=== PATIENT | male | born 1970 | race Caucasian/White ===

== ENCOUNTER 2020-01-23 17:30 | Inpatient (IN) ==
[2020-01-23] MEDS ORDERED: CEFEPIME 2,000 MG/20 ML VIAL IV STA (17:47)
[2020-01-23] MEDS ORDERED: SODIUM CHLORIDE 0.9% 1000ML 1,000 ML IV ONE ×2 (17:47→19:16)
--- NOTE | 2020-01-23 17:54 | Emergency Department Note ---
Impression & Plan Acute respiratory distress, Pneumonia, Leukocytosis, Asthma exacerbation ED Provider Note NAME: SUNITA [id number] DOUGIE AGE: 49 SEX: M : 1970 ARRIVES VIA: Ambulance INFORMANT: [Patient][staff] ED PROVIDER(S): [Ilya Suarez MD] CHIEF COMPLAINT: Shortness of breath HISTORY OF PRESENT ILLNESS: The patient is a 49-year-old asthmatic from [facility]. The patient last week had a bout of asthma that seemed to improve with the prednisone. The patient states that he was feeling okay until today when he suddenly got short of breath. He went to the [facility]. The patient was given 2 duo nebs and IV Solu-Medrol. On the way to the hospital, he was given an albuterol neb. Patient is now feeling improved. Of note, the patient was tested for coronavirus today, results pending. There are no active cases of coronavirus at the longterm. Patient felt like he may have had a fever. He has had some chills. There has been no cough or congestion. He has not had chest pain. No sore throat or stuffy nose. No leg swelling. No vomiting or diarrhea. He feels this is an asthma flare. REVIEW OF SYSTEMS: See HPI for pertinent positives and negatives. A total of ten systems were reviewed and were otherwise negative. PMHx/PSHx: See Below SOCIAL HISTORY: See Below. PHYSICAL EXAM: GENERAL: Patient is in mild distress, seems short of breath. HEENT: No acute trauma, normocephalic atraumatic, mucous membranes moist, no nasal congestion, no scleral icterus. NECK: No stridor, no adenopathy, no meningismus, trachea is midline. LUNGS: Increased respiratory rate, no true accessory muscle use. Does seem in some mild respiratory distress. HEART: Equal radial pulses, normal rate. Equal carotid pulses. ABDOMEN: Soft, nontender, bowel sounds positive, no hernias, no peritonitis. EXTREMITIES: No cyanosis or edema, full range of motion of all the joints without pain or difficulty, no signs for acute trauma. NEUROLOGIC: Oriented x 3, no acute motor or sensory deficits, no focal weakness. SKIN: No rash, no jaundice, no diaphoresis. DIFFERENTIAL DIAGNOSIS: Reactive airway disease, pneumonia, pneumothorax, COPD, CHF, coronavirus, bronchitis, infections, cardiac ischemia, pulmonary embolism, musculoskeletal, gastrointestinal, as well as other pathologies. EMERGENCY DEPARTMENT COURSE/PROCEDURES: ECG: Indication was shortness of breath. ECG shows a normal sinus rhythm with a rate of 94. There are some nonspecific ST changes. No ST elevation, no PVCs. Continuous Cardiac Monitoring: An order was placed for continuous cardiac monitoring. The monitor shows a rate of 79 with normal sinus rhythm. Critical Care Note: I have personally spent greater than 48 minutes of critical care time in the direct management of this patient. This includes bedside care, interpretation of diagnostic studies, and testing, discussion with consultants, patient, and family members, and other required patient management activities. This 48 minutes is in excess of all separately billable procedures. MEDICAL DECISION MAKING: There is a significant leukocytosis consistent with infection. No concerning anemia. There was a normal platelet count. No worrisome coagulopathy. Renal panel testing did show a creatinine elevation consistent with dehydration. Lactic acid level was elevated at 3.7, this is consistent with infection. No worrisome liver enzyme elevation. Procalcitonin level was elevated consistent with bacterial infection. ECG shows a sinus rhythm, no acute ischemia. Cardiac enzyme testing x1 is not consistent with acute cardiac injury. TB testing is pending. Chest film showed a left hilar opacity. Chest CT shows evidence for a left upper lung pneumonia. No PE was seen. The patient had received DuoNeb's prior to arrival, he had received IV Solu- Medrol. He was given IV cefepime, IV vancomycin and IV Flagyl for antibiotic coverage. He was given oral Tylenol for his fever. He received 2 L of IV saline for hydration. The patient seems to be doing fairly well. His respiratory rate has decreased. He seems more comfortable. His O2 saturation is adequate. The patient is in need of a hospital stay. He does have a pending coronavirus test from earlier today. His presentation though is more consistent with a bacterial pneumonia, possibly even TB. He is in respiratory isolation. I spoke to the patient and the guards. I spoke with the case therapist. The on- call hospitalist was consulted. Past Med/Surg History Medical History Abdominal tenderness, epigastric Asthma Back problem Right groin mass Surgical History S/P inguinal hernia repair as a child Family History Mother Hypertension Father Asthma Social History Smoking Status: Never smoker Hx Alcohol Use: Yes Preferred Language: Albanian Feels Safe at Home: Yes Allergies Allergies Allergy/AdvReac Type Severity Reaction Status Date / Time No Known Allergies Allergy Verified 01/23/20 19:00 Home Meds Home Medications Medication Instructions Recorded Confirmed cetirizine 10 mg capsule 10 mg PO DAILY 08/13/19 01/23/20 fluticasone 500 mcg-salmeterol 50 1 puffs INH BID 08/13/19 01/23/20 mcg/dose blistr powdr for inhalation ipratropium 0.5 mg-albuterol 3 mg 3 ml INH BID 08/13/19 01/23/20 (2.5 mg base)/3 mL nebulization soln levalbuterol tartrate 45 2 puffs INH QID PRN 08/13/19 01/23/20 mcg/actuation aerosol inhaler montelukast 10 mg tablet 10 mg PO QAM 08/13/19 01/23/20 theophylline 300 mg 300 mg PO QID 08/13/19 01/23/20 capsule,extended release 24 hr acetaminophen 500 mg PO TID 01/23/20 01/23/20 albuterol sulfate [Proventil] 2.5 mg INHALATION Q4H PRN 01/23/20 01/23/20 albuterol sulfate [Proventil] 2.5 mg INHALATION QID 01/23/20 01/23/20 prednisone See Rx Instructions .ROUTE .COMPLEX 01/23/20 01/23/20 Results & Data (ED) Vital Signs Vital Signs - 24 hr 01/23/20 17:36 01/23/20 17:47 01/23/20 17:51 Temperature 38.2 C H Temperature Source Oral Pulse Rate 102 H 102 H Pulse Rate from SpO2 Sensor 103 H Pulse Rhythm Regular Pulse Strength Normal Respiratory Rate 24 28 H 28 H Respiratory Effort / Characteristics Short of Breath Short of Breath Respiratory Depth Shallow Blood Pressure 139/113 H 139/113 H Blood Pressure Mean 117 121 Blood Pressure Position Sitting Pulse Oximetry 99 98 98 Oxygen Delivery Method Room Air Room Air Sepsis Recent Fever Within 48 Hours Yes Sepsis New/Unexplained Change in Mental Status No Sepsis Action Taken by Nursing Physician Notified 01/23/20 17:56 01/23/20 18:00 01/23/20 18:01 Temperature Temperature Source Pulse Rate 96 H 94 H 92 H Pulse Rate from SpO2 Sensor 97 H 96 H 94 H Pulse Rhythm Pulse Strength Respiratory Rate 28 H 27 H 23 Respiratory Effort / Characteristics Respiratory Depth Blood Pressure 114/69 Blood Pressure Mean 88 Blood Pressure Position Pulse Oximetry 100 100 100 Oxygen Delivery Method Sepsis Recent Fever Within 48 Hours Sepsis New/Unexplained Change in Mental Status Sepsis Action Taken by Nursing 01/23/20 18:30 01/23/20 18:31 01/23/20 19:00 Temperature Temperature Source Pulse Rate 96 H 88 86 Pulse Rate from SpO2 Sensor 95 H 91 H 87 Pulse Rhythm Pulse Strength Respiratory Rate 30 H 30 H 23 Respiratory Effort / Characteristics Respiratory Depth Blood Pressure 126/99 142/65 H Blood Pressure Mean 103 72 Blood Pressure Position Pulse Oximetry 99 98 99 Oxygen Delivery Method Sepsis Recent Fever Within 48 Hours Sepsis New/Unexplained Change in Mental Status Sepsis Action Taken by Nursing 01/23/20 19:01 01/23/20 19:30 01/23/20 19:31 Temperature Temperature Source Pulse Rate 86 82 79 Pulse Rate from SpO2 Sensor 87 81 78 Pulse Rhythm Pulse Strength Respiratory Rate 15 15 17 Respiratory Effort / Characteristics Respiratory Depth Blood Pressure 117/66 Blood Pressure Mean 79 Blood Pressure Position Pulse Oximetry 99 98 99 Oxygen Delivery Method Sepsis Recent Fever Within 48 Hours Sepsis New/Unexplained Change in Mental Status Sepsis Action Taken by Residential Medications Current Medication List: was personally reviewed by me Laboratory Data Attestation: I reviewed the patient's lab results. Result diagrams: 01/23/20 18:20 01/23/20 18:20 Lab Results 01/23/20 01/23/20 01/23/20 Range/Units 18:20 18:20 18:20 WBC 21.10 H (4.8-10.8) K/uL RBC 4.46 L (4.7-6.1) M/uL Hgb 13.6 L (14.0-18.0) g/dL Hct 40.2 L (42-52) % MCV 90.1 (80-100) fL MCH 30.5 (25-34) pg MCHC 33.8 (32-36) g/dL RDW Std Deviation 46.8 H (36.4-46.3) fL RDW Coeff of Servando 14.2 (11.5-14.5) % Plt Count 254 (130-400) K/uL MPV 8.8 (7.4-10.4) fL Immature Gran % (Auto) 0.5 % Neut % (Auto) 92.1 % Lymph % (Auto) 1.9 % [place] % (Auto) 5.5 % Eos % (Auto) 0.0 % Baso % (Auto) 0.0 % Neut # (Auto) 19.43 H (1.4-6.5) K/uL Lymph # (Auto) 0.41 L (1.2-3.4) K/uL [place] # (Auto) 1.15 H (0.11-0.59) K/uL Eos # (Auto) 0.00 (0-0.5) K/uL Baso # (Auto) 0.01 (0-0.2) K/uL Immature Gran # (Auto) 0.10 H (0.00-0.02) K/uL PT 12.3 H (9.0-12.0) Seconds INR 1.2 H (0.9-1.1) APTT 27.3 (21.0-31.0) Seconds PTT Ratio 1.0 Sodium 137 (136-145) mmol/L Potassium 4.0 (3.5-5.1) mmol/L Chloride 103 (98-107) mmol/L Carbon Dioxide 25 (21-32) mmol/L Anion Gap 9.0 (3-11) BUN 20 H (7-18) mg/dl Creatinine 1.72 H (0.6-1.4) mg/dl Est Cr Clr Drug Dosing 57.6 ml/min Est GFR ( Amer) 53.3 Est GFR (Non-Af Amer) 46.0 BUN/Creatinine Ratio 11.8 (10-20) Glucose 167 H (70-99) mg/dl Lactate (0.4-2.0) mmol/L Calcium 9.3 (8.5-10.1) mg/dl Magnesium 2.4 (1.8-2.4) mg/dl Total Bilirubin 1.8 H (0.2-1) mg/dl AST 21 (15-37) U/L ALT 39 (12-78) U/L Alkaline Phosphatase 73 (45-117) U/L Troponin I < 0.015 (0-0.045) ng/ml Total Protein 7.4 (6.4-8.2) gm/dl Albumin 3.2 L (3.4-5.0) gm/dl Globulin 4.2 H (2.5-4.0) gm/dl Albumin/Globulin Ratio 0.8 L (0.9-2) Procalcitonin (0-0.5) ng/ml 01/23/20 01/23/20 01/23/20 Range/Units 18:20 18:20 21:08 WBC (4.8-10.8) K/uL RBC (4.7-6.1) M/uL Hgb (14.0-18.0) g/dL Hct (42-52) % MCV (80-100) fL MCH (25-34) pg MCHC (32-36) g/dL RDW Std Deviation (36.4-46.3) fL RDW Coeff of Servando (11.5-14.5) % Plt Count (130-400) K/uL MPV (7.4-10.4) fL Immature Gran % (Auto) % Neut % (Auto) % Lymph % (Auto) % [place] % (Auto) % Eos % (Auto) % Baso % (Auto) % Neut # (Auto) (1.4-6.5) K/uL Lymph # (Auto) (1.2-3.4) K/uL [place] # (Auto) (0.11-0.59) K/uL Eos # (Auto) (0-0.5) K/uL Baso # (Auto) (0-0.2) K/uL Immature Gran # (Auto) (0.00-0.02) K/uL PT (9.0-12.0) Seconds INR (0.9-1.1) APTT (21.0-31.0) Seconds PTT Ratio Sodium (136-145) mmol/L Potassium (3.5-5.1) mmol/L Chloride (98-107) mmol/L Carbon Dioxide (21-32) mmol/L Anion Gap (3-11) BUN (7-18) mg/dl Creatinine (0.6-1.4) mg/dl Est Cr Clr Drug Dosing ml/min Est GFR ( Amer) Est GFR (Non-Af Amer) BUN/Creatinine Ratio (10-20) Glucose (70-99) mg/dl Lactate 3.7 H* 2.4 H* (0.4-2.0) mmol/L Calcium (8.5-10.1) mg/dl Magnesium (1.8-2.4) mg/dl Total Bilirubin (0.2-1) mg/dl AST (15-37) U/L ALT (12-78) U/L Alkaline Phosphatase (45-117) U/L Troponin I (0-0.045) ng/ml Total Protein (6.4-8.2) gm/dl Albumin (3.4-5.0) gm/dl Globulin (2.5-4.0) gm/dl Albumin/Globulin Ratio (0.9-2) Procalcitonin 1.54 H (0-0.5) ng/ml Administered Medications Vancomycin HCl 1,750 mg/ (Sodium Chloride) 535 mls @ 200 mls/hr IV NOW STA Stop: 01/23/20 23:14 Last Admin: 01/23/20 21:11 Dose: 200 mls/hr Documented by: [id number] Discontinued Medications Acetaminophen (Acetaminophen 500 Mg Tab) 1,000 mg PO NOW STA Stop: 01/23/20 18:15 Last Admin: 01/23/20 18:46 Dose: 1,000 mg Documented by: [id number] Cefepime HCl (Maxipime) 2,000 mg in 20 mls @ 5 mls/min IV NOW STA; Protocol Stop: 01/23/20 17:50 Last Admin: 01/23/20 18:46 Dose: 5 mls/min Documented by: [id number] Sodium Chloride (Nss 1000ml) 1,000 mls @ 999 mls/hr IV .Q1H1M ONE Stop: 01/23/20 18:47 Last Infusion: 01/23/20 19:52 Dose: 0 mls/hr Documented by: [id number] Admin: 01/23/20 18:46 Dose: 999 mls/hr Documented by: [id number] Sodium Chloride (Nss 1000ml) 1,000 mls @ 999 mls/hr IV .Q1H1M ONE Stop: 08/12/20 20:16 Last Infusion: 01/23/20 20:54 Dose: 0 mls/hr Documented by: [id number] Admin: 01/23/20 19:53 Dose: 999 mls/hr Documented by: [id number] Metronidazole (Flagyl) 500 mg in 100 mls @ 100 mls/hr IV NOW STA Stop: 01/23/20 21:37 Last Infusion: 01/23/20 22:13 Dose: 0 mls/hr Documented by: [id number] Admin: 01/23/20 21:11 Dose: 100 mls/hr Documented by: [id number] Ioversol (Optiray 320 125ml) 118 ml IV ONCE ONE Stop: 01/23/20 20:02 Last Admin: 01/23/20 20:01 Dose: 118 ml Documented by: [id number] Methylprednisolone (Methylprednisolone 125 Mg/2 Ml Vial) 125 mg IV NOW STA Stop: 01/23/20 21:27 Last Admin: 01/23/20 21:37 Dose: Not Given Documented by: [id number] Imaging Data Radiologist's Impression: XR chest 1V portable HISTORY: 49 years-old Male SEPSIS acute sepsis COMPARISON: None TECHNIQUE: Portable AP view of the chest FINDINGS: 5.1 cm left suprahilar opacity. The cardiac silhouette appears normal. No pneumothorax, pleural effusion or overt pulmonary edema. No airspace consolidation typical for pneumonia. Bones appear grossly intact. IMPRESSION: Indeterminate 5.1 cm left suprahilar opacity. Correlation with CT of the chest recommended to exclude adenopathy versus mass. CT angio chest PE protocol CT DOSE: 384.53 mGy.cm HISTORY: 49 years-old Male with PE. Acute shortness of breath with possible Covid TECHNIQUE: Multiple CTA images of the chest were obtained after the intravenous administration of 118 ml Optiray 320. Coronal and sagittal MIPS were obtained from the axial data set and were submitted for review. All measurements were obtained according to NASCET criteria. A dose lowering technique was utilized adhering to the principles of ALARA. COMPARISON: Chest radiograph of same day FINDINGS: CTA: Heart is normal in size. Trace pericardial effusion. No thoracic aortic aneurysm or dissection. Patency of the imaged great vessels. The pulmonary arterial tree is opacified to the level of the proximal subsegmental branches and demon strates no filling defects to suggest thromboembolic disease. CT CHEST: Unremarkable thyroid. Mildly enlarged AP window and paratracheal lymph nodes measure up to 11 mm in short axis. Additionally there are prominent hilar and subcarinal lymph nodes. There is no pneumothorax or pleural effusion. Irregular patchy consolidative opacities of the upper lobes. There is a left suprahilar upper lobe consolidative opacity with peripheral groundglass densities overall measuring approximately 5.0 x 3.0 x 5.7 cm. This demonstrates central air bronchograms with equivocal areas of cavitation on image 194 series 4. Fissural lymph nodes of the left midlung. Secretions are noted at the level of the greetl. The central airways are patent. Probable cyst of the superior pole left kidney, 2.8 cm. No acute process of the imaged upper abdomen. Probable cyst of the left hepatic lobe, 6 mm. Mild gynecomastia. Bones appear intact. IMPRESSION: 1. Irregular airspace opacities of the upper lobes with a 5.7 cm focal mixed consolidative and groundglass left upper lobe suprahilar opacity with central air bronchograms and equivocal central cavitation. Findings are suggestive of multifocal pneumonia with possible developing necrotic pneumonia. A short-term follow-up chest CT in one month after treatment course is recommended to document resolution. 2. Mediastinal and hilar adenopathy, likely reactive. 3. No acute aortic pathology or evidence of pulmonary thromboembolic disease. 4. No pleural effusion. Blood Pressure Blood Pressure Findings: Elevated blood pressure Blood Pressure Disposition: further management by hospitalist Discharge Plan Visit Data Chief Complaint: Shortness of Breath/Dyspnea Stated Complaint: SOB ED Provider: Ilya Suarez Discharge Problem: Acute respiratory distress, Pneumonia, Leukocytosis, Asthma exacerbation Patient Disposition: Admitted As Inpatient Condition: Fair Discharge Instructions Interventions: ED Discharge Assessment Last Done: 01/23/20 22:51 Discharge Problem: Pneumonia Qualifiers: Pneumonia type: due to unspecified organism Laterality: left Lung location: upper lobe of lung Qualified Code(s): J18.9 - Pneumonia, unspecified organism Leukocytosis Qualifiers: Leukocytosis type: unspecified Qualified Code(s): D72.829 - Elevated white blood cell count, unspecified Asthma exacerbation Qualifiers: Asthma severity: severe Asthma persistence: persistent Qualified Code(s): J45.51 - Severe persistent asthma with (acute) exacerbation
[2020-01-23] MEDS ORDERED: ACETAMINOPHEN 500 MG TAB PO STA (18:14)
[2020-01-23 18:37] LABS: Basophils # (auto) 0.01 K/uL (0-0.2); Hematocrit (blood only) 40.2 % (42-52); Hemoglobin 13.6 g/dL (14.0-18.0); Immature Granulocytes % (auto) 0.5 %; Lymphocytes # (auto) 0.41 K/uL (1.2-3.4); Lymphocytes % (auto) 1.9 %; Mean Corpuscular Hemoglobin 30.5 pg (25-34); Mean Corpuscular Hgb Conc 33.8 g/dL (32-36); Mean Corpuscular Volume 90.1 fL (80-100); Mean Platelet Volume 8.8 fL (7.4-10.4); Monocytes # (auto) 1.15 K/uL (0.11-0.59); Monocytes % (auto) 5.5 %; Neutrophils # (auto) 19.43 K/uL (1.4-6.5); Neutrophils % (auto) 92.1 %; Platelet Count 254 K/uL (130-400); RDW Coefficient of Variation 14.2 % (11.5-14.5); RDW Standard Deviation 46.8 fL (36.4-46.3); Red Blood Count 4.46 M/uL (4.7-6.1)
[2020-01-23 18:54] LABS: Alanine Aminotransferase 39 U/L (12-78); Albumin Level 3.2 gm/dl (3.4-5.0); Aspartate Aminotransferase 21 U/L (15-37); BUN Creatinine Ratio 11.8 (10-20); Blood Urea Nitrogen 20 mg/dl (7-18); Calcium 9.3 mg/dl (8.5-10.1); Carbon Dioxide 25 mmol/L (21-32); Chloride 103 mmol/L (98-107); Creatinine Clr Calc Pharmacy 57.6 ml/min; Est GFR (African American) 53.3; Glucose 167 mg/dl (70-99); Magnesium 2.4 mg/dl (1.8-2.4); Sodium 137 mmol/L (136-145)
[2020-01-23 18:55] LABS: INR 1.2 (0.9-1.1); Partial Thromboplastin Time 27.3 Seconds (21.0-31.0); Prothrombin Time 12.3 Seconds (9.0-12.0)
[2020-01-23 18:59] LABS: Albumin Globulin Ratio 0.8 (0.9-2); Alkaline Phosphatase 73 U/L (45-117); Bilirubin,Total 1.8 mg/dl (0.2-1); Globulin 4.2 gm/dl (2.5-4.0); Total Protein 7.4 gm/dl (6.4-8.2); Troponin I < 0.015 ng/ml (0-0.045)
--- NOTE | 2020-01-23 19:05 | XRay Report ---
XR chest 1V portable HISTORY: 49 years-old Male SEPSIS acute sepsis COMPARISON: None TECHNIQUE: Portable AP view of the chest FINDINGS: 5.1 cm left suprahilar opacity. The cardiac silhouette appears normal. No pneumothorax, pleural effus ion or overt pulmonary edema. No airspace consolidation typical for pneumonia. Bones appear grossly i ntact. IMPRESSION: Indeterminate 5.1 cm left suprahilar opacity. Correlation with CT of the chest recommende d to exclude adenopathy versus mass. ACT 112: Negative or not required by law. The above report was generated using voice recognition software. It may contain grammatical, syntax o r spelling errors. Electronically signed by: Uziel Romero M.D. 01/23/2020 7:03 PM
[2020-01-23] MEDS ORDERED: OPTIRAY 320 125ml IV ONE (20:01)
--- NOTE | 2020-01-23 20:19 | CT Scan Report ---
CT angio chest PE protocol CT DOSE: 384.53 mGy.cm HISTORY: 49 years-old Male with PE. Acute shortness of breath with possible Covid TECHNIQUE: Multiple CTA images of the chest were obtained after the intravenous administration of 118 ml Optiray 320. Coronal and sagittal MIPS were obtained from the axial data set and were submitted for review. All measurements were obtained according to NASCET criteria. A dose lowering technique w as utilized adhering to the principles of ALARA. COMPARISON: Chest radiograph of same day FINDINGS: CTA: Heart is normal in size. Trace pericardial effusion. No thoracic aortic aneurysm or dissection. Paten cy of the imaged great vessels. The pulmonary arterial tree is opacified to the level of the proximal subsegmental branches and demonstrates no filling defects to suggest thromboembolic disease. CT CHEST: Unremarkable thyroid. Mildly enlarged AP window and paratracheal lymph nodes measure up to 11 mm in s hort axis. Additionally there are prominent hilar and subcarinal lymph nodes. There is no pneumothorax or pleural effusion. Irregular patchy consolidative opacities of the upper l obes. There is a left suprahilar upper lobe consolidative opacity with peripheral groundglass densiti es overall measuring approximately 5.0 x 3.0 x 5.7 cm. This demonstrates central air bronchograms wit h equivocal areas of cavitation on image 194 series 4. Fissural lymph nodes of the left midlung. Secr etions are noted at the level of the gretel. The central airways are patent. Probable cyst of the superior pole left kidney, 2.8 cm. No acute process of the imaged upper abdomen. Probable cyst of the left hepatic lobe, 6 mm. Mild gynecomastia. Bones appear intact. IMPRESSION: 1. Irregular airspace opacities of the upper lobes with a 5.7 cm focal mixed consolidative and ground glass left upper lobe suprahilar opacity with central air bronchograms and equivocal central cavitati on. Findings are suggestive of multifocal pneumonia with possible developing necrotic pneumonia. A sh ort-term follow-up chest CT in one month after treatment course is recommended to document resolution . 2. Mediastinal and hilar adenopathy, likely reactive. 3. No acute aortic pathology or evidence of pulmonary thromboembolic disease. 4. No pleural effusion. ACT 112: Negative or not required by law. The above report was generated using voice recognition software. It may contain grammatical, syntax o r spelling errors. Electronically signed by: Uziel Romero M.D. 01/23/2020 8:18 PM
[2020-01-23] MEDS ORDERED: VANCOMYCIN HCL 1,750 MG in SODIUM CHLORIDE 0.9% 500 ML IV STA (20:34)
[2020-01-23] MEDS ORDERED: metroNIDAZOLE 500 MG/100 ML BAG IV STA (20:38)
[2020-01-23] MEDS ORDERED: VANCOMYCIN CONSULT ACTIVE PRN ×2 (20:38→22:48)
[2020-01-23] MEDS ORDERED: methylPREDNISolone 125 MG/2 ML VIAL IV STA (21:26)
--- NOTE | 2020-01-23 21:39 | History & Physical Report ---
Date of Service January 23, 2020 Assessment & Plan (1) Acute respiratory failure with hypoxia: Acute respiratory failure with hypoxia/5.7 cm LAUREN consolidation with central cavitation/mediastinal and hilar lymphadenopathy/bilateral upper airway irregular opacities- Admit to monitored bed NPO except for essential medications Respiratory isolation QuantiFERON TB Gold testing ordered Vancomycin IV per pharmacokinetic monitoring Zosyn 4.5 g IV every 8 hours Duonebs every 4 hours while awake and every 2 hours when necessary. Methylprednisolone 40 mg IV every 8 hours Guaifenesin extended release 600 mg p.o. twice daily Zofran 4 mg IV every 6 hours PRN Continue theophylline extended release 300 mg p.o. 4 times daily. Check a theophylline level COVID-19 testing pending from [facility]. Consult pulmonology Present on Admission?: Yes (2) Cavitary lesion of lung: See above Present on Admission?: Yes (3) Pneumonia: See above Present on Admission?: Yes (4) Asthma exacerbation: See above Present on Admission?: Yes (5) Acute kidney injury: Creatinine 1.72 upon admission, with baseline 1.08. Place on NSS at 100 mils per hour. Repeat laboratories in a.m. Present on Admission?: Yes (6) Hyperglycemia: Glucose 167 upon admission. No history of diabetes mellitus. We will check hemoglobin A1c Present on Admission?: Yes (7) Lactic acidosis: Lactic acid 3.7 upon admission, with repeat pending Present on Admission?: Yes History of Present Illness Chief Complaint: The patient presents to the emergency department with worsening shortness of breath over the past 24 hours despite being placed on prednisone last week, and duo nebs and IV Solu-Medrol today at the [facility]. The patient describes what he feels as a sense of a golf ball in his left upper chest area. Primary Care Provider: [facility] The patient is a 49-year-old male resident of [facility], who was treated for what was thought to be an asthma attack last week with oral prednisone. After feeling worse today, he went to the [facility], where he was given 2 duo nebs and IV Solu-Medrol. Without sufficient improvement, he was brought to the emergency department, and reportedly en route received antibiotic nebulizer which did have some improvement. In the emergency department, the patient was found to have a temperature 100.8 F, a chest x-ray suggestive of a left upper lobe pneumonia, and then had a CT angiography PE protocol, which showed a 5.7 cm consolidation, and question of a central cavitary lesion, mediastinal and hilar lymphadenopathy, and bilateral upper airway groundglass opacities. He does have a pending COVID-19 test from the intermediate that was drawn today. Of note, there are no COVID cases present at the intermediate at this time. Allergies Allergy/AdvReac Type Severity Reaction Status Date / Time No Known Allergies Allergy Verified 01/23/20 19:00 Home Medications Home Medications Medication Instructions Recorded Confirmed Type cetirizine 10 mg capsule 10 mg PO DAILY 08/13/19 01/23/20 History fluticasone 500 mcg-salmeterol 50 1 puffs INH BID 08/13/19 01/23/20 History mcg/dose blistr powdr for inhalation ipratropium 0.5 mg-albuterol 3 mg 3 ml INH BID 08/13/19 01/23/20 History (2.5 mg base)/3 mL nebulization soln levalbuterol tartrate 45 2 puffs INH QID PRN 08/13/19 01/23/20 History mcg/actuation aerosol inhaler montelukast 10 mg tablet 10 mg PO QAM 08/13/19 01/23/20 History theophylline 300 mg 300 mg PO QID 08/13/19 01/23/20 History capsule,extended release 24 hr acetaminophen 500 mg PO TID 01/23/20 01/23/20 History albuterol sulfate [Proventil] 2.5 mg INHALATION Q4H PRN 01/23/20 01/23/20 History albuterol sulfate [Proventil] 2.5 mg INHALATION QID 01/23/20 01/23/20 History prednisone See Rx Instructions .ROUTE .COMPLEX 01/23/20 01/23/20 History Past Med/Surg History Medical History Abdominal tenderness, epigastric Asthma Back problem Right groin mass Surgical History S/P inguinal hernia repair as a child Family History Mother Hypertension Father Asthma Social History Smoking Status: Unknown if ever smoked Hx Alcohol Use: No Hx Substance Use: No Preferred Language: [place] Communication Ability: Effective Die Keeper Required: No Beliefs That Will Affect Care: None Current Living Situation: Other Current Living Situation Comment: inmate Other Information That Helps Us Care for You: No Feels Safe at Home: Yes Review of Systems Review of Systems: The patient denies palpitations, lower extremity swelling, sore throat, fevers, chills, sweats, nausea, vomiting, diarrhea , constipation, abdominal pain, pelvic pain, blood in urine or stool, dysuria, urinary frequency or urgency, lightheadedness, dizziness, headache, memory loss, loss of consciousness, rash, abnormal bruising or bleeding, imbalance, focal or generalized weakness, numbness or tingling in arms or legs, generalized arthralgias or myalgias, back or neck pain, or night sweats. The review of systems is otherwise negative other than for that already noted above, and at least 10 systems have been reviewed. Physical Exam Physical Exam: The patient is awake, alert and oriented 3, normocephalic and atraumatic, lying in bed and in no acute distress. HEENT--PERRL, EOMI, mucous membranes and oropharynx normal. Neck--supple. No JVD. No bruits. Thyroid normal, trachea midline, no adenopathy. Heart--normal S1 and S2. No murmurs, rubs or gallops. Lungs--few coarse breath sounds bilaterally, with crackles and tubular breath sounds left upper. No respiratory distress, no accessory muscle use. Abdomen--normal bowel sounds and soft. Nontender. Nondistended. Extremities--no cyanosis or clubbing. No edema. Dermatologic--normal skin turgor, normal color, no abnormal lymph nodes, no rash. Neurologic--cranial nerves II through XII grossly intact. Rheumatologic--normal range of motion. Psychiatric--normal affect. Results & Data Results & Data ([facility]) Vital Signs (Past 12 Hours) Vital Signs Temp Pulse Resp BP Pulse Ox 01/23/20 19:31 79 17 99 01/23/20 19:30 82 15 117/66 98 01/23/20 19:01 86 15 99 01/23/20 19:00 86 23 142/65 H 99 01/23/20 18:31 88 30 H 98 01/23/20 18:30 96 H 30 H 126/99 99 01/23/20 18:01 92 H 23 100 01/23/20 18:00 94 H 27 H 114/69 100 01/23/20 17:56 96 H 28 H 100 01/23/20 17:51 28 H 98 01/23/20 17:47 100.8 F H 102 H 28 H 139/113 H 98 01/23/20 17:36 102 H 24 139/113 H 99 Laboratory Results Laboratory Results WBC 21.10 K/uL (4.8-10.8) H 01/23/20 18:20 RBC 4.46 M/uL (4.7-6.1) L 01/23/20 18:20 Hgb 13.6 g/dL (14.0-18.0) L 01/23/20 18:20 Hct 40.2 % (42-52) L 01/23/20 18:20 MCV 90.1 fL (80-100) 01/23/20 18:20 MCH 30.5 pg (25-34) 01/23/20 18:20 MCHC 33.8 g/dL (32-36) 01/23/20 18:20 RDW Std Deviation 46.8 fL (36.4-46.3) H 01/23/20 18:20 RDW Coeff of Servando 14.2 % (11.5-14.5) 01/23/20 18:20 Plt Count 254 K/uL (130-400) 01/23/20 18:20 MPV 8.8 fL (7.4-10.4) 01/23/20 18:20 Immature Gran % (Auto) 0.5 % 01/23/20 18:20 Neut % (Auto) 92.1 % 01/23/20 18:20 Lymph % (Auto) 1.9 % 01/23/20 18:20 Payette % (Auto) 5.5 % 01/23/20 18:20 Eos % (Auto) 0.0 % 01/23/20 18:20 Baso % (Auto) 0.0 % 01/23/20 18:20 Neut # (Auto) 19.43 K/uL (1.4-6.5) H 01/23/20 18:20 Lymph # (Auto) 0.41 K/uL (1.2-3.4) L 01/23/20 18:20 Payette # (Auto) 1.15 K/uL (0.11-0.59) H 01/23/20 18:20 Eos # (Auto) 0.00 K/uL (0-0.5) 01/23/20 18:20 Baso # (Auto) 0.01 K/uL (0-0.2) 01/23/20 18:20 Immature Gran # (Auto) 0.10 K/uL (0.00-0.02) H 01/23/20 18:20 PT 12.3 Seconds (9.0-12.0) H 01/23/20 18:20 INR 1.2 (0.9-1.1) H 01/23/20 18:20 APTT 27.3 Seconds (21.0-31.0) 01/23/20 18:20 PTT Ratio 1.0 01/23/20 18:20 Sodium 137 mmol/L (136-145) 01/23/20 18:20 Potassium 4.0 mmol/L (3.5-5.1) 01/23/20 18:20 Chloride 103 mmol/L (98-107) 01/23/20 18:20 Carbon Dioxide 25 mmol/L (21-32) 01/23/20 18:20 Anion Gap 9.0 (3-11) 01/23/20 18:20 BUN 20 mg/dl (7-18) H 01/23/20 18:20 Creatinine 1.72 mg/dl (0.6-1.4) H 01/23/20 18:20 Est Cr Clr Drug Dosing 57.6 ml/min 01/23/20 18:20 Est GFR ( Amer) 53.3 01/23/20 18:20 Est GFR (Non-Af Amer) 46.0 01/23/20 18:20 BUN/Creatinine Ratio 11.8 (10-20) 01/23/20 18:20 Glucose 167 mg/dl (70-99) H 01/23/20 18:20 Lactate 2.4 mmol/L (0.4-2.0) H* 01/23/20 21:08 Calcium 9.3 mg/dl (8.5-10.1) 01/23/20 18:20 Magnesium 2.4 mg/dl (1.8-2.4) 01/23/20 18:20 Total Bilirubin 1.8 mg/dl (0.2-1) H 01/23/20 18:20 AST 21 U/L (15-37) 01/23/20 18:20 ALT 39 U/L (12-78) 01/23/20 18:20 Alkaline Phosphatase 73 U/L (45-117) 01/23/20 18:20 Troponin I < 0.015 ng/ml (0-0.045) 01/23/20 18:20 Total Protein 7.4 gm/dl (6.4-8.2) 01/23/20 18:20 Albumin 3.2 gm/dl (3.4-5.0) L 01/23/20 18:20 Globulin 4.2 gm/dl (2.5-4.0) H 01/23/20 18:20 Albumin/Globulin Ratio 0.8 (0.9-2) L 01/23/20 18:20 Procalcitonin 1.54 ng/ml (0-0.5) H 01/23/20 18:20 Nasal Screen MRSA (PCR) Negative (Negative) 01/24/20 00:13 Diagnostic Findings [place], [place] [phone] XRay Report Patient: SUNITA CONSTANTINO [id number] Date: 01/23/20 MR#: [id number]: BOX A Acct ID:[id number]: Date: [address] Zip: [place] [address] Age: 49Location: ED Sex: M Room/Bed: Att Phy:Diagnosis: SOB Ashley Phy: [facility] Date: 01/23/20 Fam Phy:Interpreting Phy: Sadiq Romero Admit Phy: Ordering Phy: Ilya Suarez M.D. cc: ~ XR chest 1V portable HISTORY: 49 years-old Male SEPSIS acute sepsis COMPARISON: None TECHNIQUE: Portable AP view of the chest FINDINGS: 5.1 cm left suprahilar opacity. The cardiac silhouette appears normal. No pneumothorax, pleural effusion or overt pulmonary edema. No airspace consolidation typical for pneumonia. Bones appear grossly intact. IMPRESSION: Indeterminate 5.1 cm left suprahilar opacity. Correlation with CT of the chest recommended to exclude adenopathy versus mass. ACT 112: Negative or not required by law. The above report was generated using voice recognition software. It may contain grammatical, syntax or spelling errors. Electronically signed by: Uziel Romero M.D. 01/23/2020 7:03 PM Dictated: 01/23/201901 Transcribed: 01/23/201901 [place], [place] [phone] CT Scan Report Patient: SUNITA CONSTANTINO [id number] Date: 01/23/20 MR#: [id number]: BOX A Acct ID:[id number]: Date: [address] Zip: [place] [address] Age: 49Location: ED Sex: M Room/Bed: Att Phy:Diagnosis: SOB Ashley Phy: SCI [facility] Date: 01/23/20 Fam Phy:Interpreting Phy: Sadiq Romero Admit Phy: Ordering Phy: Ilya Suarez M.D. cc: ~ CT angio chest PE protocol CT DOSE: 384.53 mGy.cm HISTORY: 49 years-old Male with PE. Acute shortness of breath with possible Covid TECHNIQUE: Multiple CTA images of the chest were obtained after the intravenous administration of 118 ml Optiray 320. Coronal and sagittal MIPS were obtained from the axial data set and were submitted for review. All measurements were obtained according to NASCET criteria. A dose lowering technique was utilized adhering to the principles of ALARA. COMPARISON: Chest radiograph of same day FINDINGS: CTA: Heart is normal in size. Trace pericardial effusion. No thoracic aortic aneurysm or dissection. Patency of the imaged great vessels. The pulmonary arterial tree is opacified to the level of the proximal subsegmental branches and demonstrates no filling defects to suggest thromboembolic disease. CT CHEST: Unremarkable thyroid. Mildly enlarged AP window and paratracheal lymph nodes measure up to 11 mm in short axis. Additionally there are prominent hilar and subcarinal lymph nodes. There is no pneumothorax or pleural effusion. Irregular patchy consolidative opacities of the upper lobes. There is a left suprahilar upper lobe consolidative opacity with peripheral groundglass densities overall measuring approximately 5.0 x 3.0 x 5.7 cm. This demonstrates central air bronchograms with equivocal areas of cavitation on image 194 series 4. Fissural lymph nodes of the left midlung. Secretions are noted at the level of the gretel. The central airways are patent. Probable cyst of the superior pole left kidney, 2.8 cm. No acute process of the imaged upper abdomen. Probable cyst of the left hepatic lobe, 6 mm. Mild gynecomastia. Bones appear intact. IMPRESSION: 1. Irregular airspace opacities of the upper lobes with a 5.7 cm focal mixed consolidative and groundglass left upper lobe suprahilar opacity with central air bronchograms and equivocal central cavitation. Findings are suggestive of multifocal pneumonia with possible developing necrotic pneumonia. A short-term follow-up chest CT in one month after treatment course is recommended to document resolution. 2. Mediastinal and hilar adenopathy, likely reactive. 3. No acute aortic pathology or evidence of pulmonary thromboembolic disease. 4. No pleural effusion. ACT 112: Negative or not required by law. The above report was generated using voice recognition software. It may contain grammatical, syntax or spelling errors. Electronically signed by: Uziel Romero M.D. 01/23/2020 8:18 PM Dictated: 01/23/202006 Transcribed: 01/23/202006 Code Status & VTE Plan Code Status Full code VTE Prophylaxis Plan VTE Prophylaxis will be ordered: Yes PG Care Time/CCT Total # of Minutes Spent Total Time Spent with Patient: Total time spent is greater than 50% in coordination of care (as documented) at patient's floor/unit and/or counseling patient: Coding Level of Care Code 97079 Initial Inpt Care Lvl 3 Diagnoses Acute respiratory failure with hypoxia J96.01 Cavitary lesion of lung J98.4 Pneumonia J18.9 Laterality: left Lung location: upper lobe of lung Pneumonia type: due to unspecified organism Asthma exacerbation J45.51 Asthma persistence: persistent Asthma severity: severe Acute kidney injury N17.9 Hyperglycemia R73.9 Lactic acidosis E87.2 (1) Pneumonia Laterality: left Lung location: upper lobe of lung Pneumonia type: due to unspecified organism Qualified Code(s): J18.9 - Pneumonia, unspecified organism (2) Asthma exacerbation Asthma persistence: persistent Asthma severity: severe Qualified Code(s): J45.51 - Severe persistent asthma with (acute) exacerbation
[2020-01-23] MEDS ORDERED: PIPERACILL/TAZOBAC CONSULT ACTIVE PRN (22:48)
[2020-01-23] MEDS ORDERED: ALUMINUM/MAGNESIUM SUSP 30 ML UDC PO PRN (22:48)
[2020-01-23] MEDS ORDERED: MAGNESIUM HYDROXIDE SUSP 30 ML UDC PO PRN (22:48)
[2020-01-24] MEDS: SODIUM CHLORIDE 0.9% 1000ML 1,000 ML IV SCH ×3 (00:12→21:16)
[2020-01-24] MEDS: PIPERACILLIN/TAZOBACTAM 4.5 GM in DEXTROSE 5% 100 ML IV SCH ×3 (00:12→16:03)
[2020-01-24] MEDS: methylPREDNISolone 40 MG in SYRINGE 0 ML IV SCH ×3 (00:13→16:03)
[2020-01-24] MEDS: ACETAMINOPHEN 325 MG TAB PO PRN ×3 (03:43→21:13)
[2020-01-24 04:38] LABS: Appearance Urine Clear (Clear); Bilirubin Urine Negative (Negative); Blood Urine Negative (Negative); Color Urine Yellow; Glucose Urine UA 3+ (Negative); Ketones Urine Negative (Negative); Leukocyte Esterase Urine Negative (Negative); Nitrite Urine Negative (Negative); Protein Urine Negative (Negative); Specific Gravity Urine 1.037 (1.000-1.030); Urobilinogen Urine Negative (Negative); pH Urine 5.5 (4.5-7.5)
[2020-01-24] MEDS ORDERED: NITROGLYCERIN 2% OINTMENT 30GM TUBE EXT STA (04:41)
[2020-01-24] MEDS ORDERED: ASPIRIN CHEW 324 MG PO STA (04:43)
[2020-01-24] MEDS ORDERED: MoRPHine SULFATE 2 MG/ML CARP IV STA (04:43)
[2020-01-24] MEDS ORDERED: ASPIRIN CHEW 324 MG ONE (04:44)
[2020-01-24] MEDS ORDERED: MoRPHine SULFATE 2 MG/ML CARP ONE (04:45)
[2020-01-24] MEDS ORDERED: NITROGLYCERIN SL 0.4 MG/TAB TAB ONE (04:45)
[2020-01-24 06:49] LABS: Hematocrit (blood only) 34.3 % (42-52); Hemoglobin 11.9 g/dL (14.0-18.0); Immature Granulocytes # (auto) 0.12 K/uL (0.00-0.02); Immature Granulocytes % (auto) 0.6 %; Lymphocytes # (auto) 0.86 K/uL (1.2-3.4); Lymphocytes % (auto) 4.4 %; Mean Corpuscular Hemoglobin 30.9 pg (25-34); Mean Corpuscular Hgb Conc 34.7 g/dL (32-36); Mean Corpuscular Volume 89.1 fL (80-100); Monocytes # (auto) 1.04 K/uL (0.11-0.59); Monocytes % (auto) 5.3 %; Neutrophils # (auto) 17.63 K/uL (1.4-6.5); Neutrophils % (auto) 89.7 %; Platelet Count 225 K/uL (130-400); RDW Coefficient of Variation 14.3 % (11.5-14.5); RDW Standard Deviation 46.8 fL (36.4-46.3); Red Blood Count 3.85 M/uL (4.7-6.1); White Blood Count 19.65 K/uL (4.8-10.8)
[2020-01-24 06:59] LABS: INR 1.2 (0.9-1.1); Prothrombin Time 12.7 Seconds (9.0-12.0)
[2020-01-24 07:21] LABS: Albumin Level 2.6 gm/dl (3.4-5.0); Calcium 7.9 mg/dl (8.5-10.1); Creatinine Clr Calc Pharmacy 76.3 ml/min; Est GFR (African American) 74.8; Est GFR (Non-African American) 64.5; Potassium 4.1 mmol/L (3.5-5.1)
[2020-01-24 07:26] LABS: Albumin Globulin Ratio 0.7 (0.9-2); Bilirubin,Total 1.4 mg/dl (0.2-1); Globulin 3.8 gm/dl (2.5-4.0); Total Protein 6.4 gm/dl (6.4-8.2)
[2020-01-24] MEDS: ALBUT/IPRATROP 3MG/0.5MG NEB 3 ML VIAL NEB SCH ×4 (07:29→19:56)
[2020-01-24 07:58] LABS: Estimated Average Glucose 126 mg/dl
[2020-01-24] MEDS: MONTELUKAST SODIUM 10 MG TABLET PO SCH (08:05)
[2020-01-24] MEDS: guaiFENesin 600 MG TABCR PO SCH ×2 (08:05→21:15)
[2020-01-24] MEDS: VANCOMYCIN HCL 1,000 MG in SODIUM CHLORIDE 0.9% 250 ML IV SCH ×2 (08:05→21:15)
[2020-01-24] MEDS: CETIRIZINE HCL 10 MG TABLET PO SCH (08:05)
[2020-01-24] MEDS: THEOPHYLLINE 300MG EXTENDED REL TAB PO SCH ×4 (09:19→21:14)
--- NOTE | 2020-01-24 11:47 | Pharmacy Report ---
Pharmacy Abx Initial Consult - Date of Service January 24, 2020 - Pharmacy Dosing Scope Date of Consult: 01/22 Consultation requested by: Dr. Maya Pharmacy is consulted to initiate vancomycin/zosyn dosing therapy, order appropriate labs and adjust drug dose/frequency. - Subjective The patient is a 49 year old M admitted on 01/23/20 21:26. - Objective Height: 6 ft Weight: 83.2 kg Vital Signs (Past 12hrs): Vital Signs Temp Pulse Resp BP Pulse Ox 01/24/20 11:22 77 18 98 01/24/20 08:00 36.8 C 75 18 136/74 99 01/24/20 07:30 78 18 98 01/24/20 04:50 36.7 C 68 20 158/101 H 100 Lab Results (24hrs): Laboratory Tests (24 Hours) 01/24/20 01/24/20 01/23/20 06:23 06:23 18:20 WBC 19.65 H Neut # (Auto) 17.63 H Creatinine 1.30 D Est Cr Clr Drug Dosing 76.3 Procalcitonin 1.54 H 01/23/20 01/23/20 18:20 18:20 WBC 21.10 H Neut # (Auto) 19.43 H Creatinine 1.72 H Est Cr Clr Drug Dosing 57.6 Procalcitonin Micro Results: 01/23/20 18:20 Aerobic Blood Culture - Pending Blood Anaerobic Blood Culture - Pending 01/23/20 18:20 Aerobic Blood Culture - Pending Blood Anaerobic Blood Culture - Pending - Assessment & Plan Assessment 49 year old M presented from [facility] with SOB, history of asthma. Leukocytosis (21.1-->19.6), Tmax 38.2, Chest CT read "Findings are suggestive of multifocal pneumonia with possible developing necrotic pneumonia" with cavitary lesion. Ruslan brenner received a dose of cefepime/flagyl/vancomycin in the ED. This was changed to vancomycin + zosyn on admission. Blood cultures pending. MRSA nasal swab was negative, but would hesitate to de-escalate based on this for now given CT finding, however, patient is currently on room air and may be able to de- escalate after 48 hours? Plan Vancomycin IV * Estimated PK Parameters: Vd 0.7 L/kg, Manuelito 0.067 hr-1, t1/2 10.3 hr * Loading dose:2500 mg (21.6 mg/kg) * Maintenance dose: 1000 mg IV (12.3 mg/kg) every 12 hours * Goal trough level 15-20 mcg/mL * Trough ordered for 01/24 @0730 Piperacillin/tazobactam * 4.5 g bolus administered over 30 minutes, then 4.5 g IV extended infusion every 8 hours for CrCl greater than 20 mL/min * Aggressive dosing selected due to critically ill status. Pharmacy will continue to follow and will adjust dose/frequency as necessary. Thank you.
--- NOTE | 2020-01-24 16:54 | Pulmonary Consultation ---
Date of Consultation January 24, 2020 Assessment & Plan (1) Abnormal chest CT: CTA chest 01/23/2020 personally reviewed: Patient has left upper lobe lobe, superior lingular segment air bronchograms and consolidative process. There is also station 4L and para-aortic hilar lymph node enlargement minimal, likely reactive. No peripheral groundglass opacities appreciated. --Left upper lobe consolidative process With air bronchogram And the patient was incarcerated I would continue with broad-spectrum antibiotics to cover for bacterial infection. The location could still be MTB. Continue with airborne precautions. Gold QuantiFERON has already been sent. 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 It can be also done acute 8 hours if possible. Needs 3- AFB smears. There is no peripheral groundglass opacities appreciated on the CAT scan. The CT finding does not go with Covid-19. Covid-19 has been ordered. Follow-up results --Asthma Patient is on theophylline on a daily basis along with high-dose ICS/LABA We will give patient Breo 200/25 while he is in the hospital. Plan: Follow-up Gold QuantiFERON, follow-up AFB smear/culture Continue with broad-spectrum antibiotics Follow-up chest x-rays to 48 hours. Patient will need repeat CT scan in approximately 6 to 8 weeks to make sure there is evaluation of the left upper lobe infiltrate. Titrate down steroids starting tomorrow to 40 daily followed by transition to p.o. Case was discussed with nursing bedside. Please note the above document was generated using voice recognition software. It may contain grammatical, syntax or spelling errors. History of Present Illness Attending Physician: Juan Pardo History of Present Illness 49-year-old male with past medical history of asthma residing at [facility] was admitted to the hospital because having chest tightness on the left side along with mild shortness of breath. Patient was given antibiotics in the ED. Chest x-ray showed left upper lobe opacity which was followed by CT chest Pulmonary were consulted for the finding on the CT chest Patient was seen from the room window. He was saturating well on room air not in any acute distress getting his blood drawn. Breathing around 14-16 breaths/min. History obtained from previous charts as well as H&P. Allergies Allergy/AdvReac Type Severity Reaction Status Date / Time No Known Allergies Allergy Verified 01/23/20 19:00 Home Medications Home Medications Medication Instructions Recorded Confirmed Type cetirizine 10 mg capsule 10 mg PO DAILY 08/13/19 01/23/20 History fluticasone 500 mcg-salmeterol 50 1 puffs INH BID 08/13/19 01/23/20 History mcg/dose blistr powdr for inhalation ipratropium 0.5 mg-albuterol 3 mg 3 ml INH BID 08/13/19 01/23/20 History (2.5 mg base)/3 mL nebulization soln levalbuterol tartrate 45 2 puffs INH QID PRN 08/13/19 01/23/20 History mcg/actuation aerosol inhaler montelukast 10 mg tablet 10 mg PO QAM 08/13/19 01/23/20 History theophylline 300 mg 300 mg PO QID 08/13/19 01/23/20 History capsule,extended release 24 hr acetaminophen 500 mg PO TID 01/23/20 01/23/20 History albuterol sulfate [Proventil] 2.5 mg INHALATION Q4H PRN 01/23/20 01/23/20 History albuterol sulfate [Proventil] 2.5 mg INHALATION QID 01/23/20 01/23/20 History prednisone See Rx Instructions .ROUTE .COMPLEX 01/23/20 01/23/20 History Patient History Medical History (Updated 01/24/20 @ 16:46 by Vinicio Fallon MD) Abdominal tenderness, epigastric Asthma Back problem Right groin mass Surgical History S/P inguinal hernia repair as a child Family History Mother Hypertension Father Asthma Social History Smoking Status: Unknown if ever smoked Hx Alcohol Use: No Hx Substance Use: No Preferred Language: Bengali Communication Ability: Effective 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 Please look at the hospitalist physical exam. Results & Data Results & Data ([facility]) Vital Signs (Past 12 Hours) Vital Signs Temp Pulse Resp BP Pulse Ox 01/24/20 16:08 36.8 C 95 H 16 130/66 99 01/24/20 15:20 87 14 99 01/24/20 12:29 36.9 C 86 20 133/67 98 01/24/20 11:22 77 18 98 01/24/20 08:00 36.8 C 75 18 136/74 99 01/24/20 07:30 78 18 98 01/24/20 04:50 36.7 C 68 20 158/101 H 100 01/24/20 06:23 01/24/20 06:23 PG Care Time/CCT Total # of Minutes Spent Total Time Spent with Patient: Total time spent is greater than 50% in coordination of care (as documented) at patient's floor/unit and/or counseling patient: Coding Level of Care Code 58623 Inpt Consult Level [address] R93.89 Time Spent (min) 61
--- NOTE | 2020-01-24 21:26 | Hospitalist Progress Note ---
Date of Service January 24, 2020 Assessment & Plan (1) Acute respiratory failure with hypoxia: Acute respiratory failure with hypoxia/5.7 cm LAUREN consolidation with central cavitation/mediastinal and hilar lymphadenopathy/bilateral upper airway irregular opacities- Admit to monitored bed NPO except for essential medications Respiratory isolation QuantiFERON TB Gold testing ordered Vancomycin IV per pharmacokinetic monitoring Zosyn 4.5 g IV every 8 hours Duonebs every 4 hours while awake and every 2 hours when necessary. Methylprednisolone 40 mg IV every 8 hours Guaifenesin extended release 600 mg p.o. twice daily Zofran 4 mg IV every 6 hours PRN Continue theophylline extended release 300 mg p.o. 4 times daily. Check a theophylline level COVID-19 testing pending from [facility]. Consult pulmonology Appreciate inputPlan: Follow-up Gold QuantiFERON, follow-up AFB smear/culture Continue with broad-spectrum antibiotics Follow-up chest x-rays to 48 hours. Patient will need repeat CT scan in approximately 6 to 8 weeks to make sure there is evaluation of the left upper lobe infiltrate. Titrate down steroids starting tomorrow to 40 daily followed by transition to p.o. (2) Cavitary lesion of lung: See above (3) Pneumonia: See above (4) Asthma exacerbation: See above (5) Acute kidney injury: Creatinine 1.72 upon admission, with baseline 1.08. Place on NSS at 100 mils per hour. Repeat laboratories in a.m. (6) Hyperglycemia: Glucose 167 upon admission. No history of diabetes mellitus. We will check hemoglobin A1c (7) Lactic acidosis: Lactic acid 3.7 upon admission, with repeat 2.4 Admission and Anticipated Discharge Date Admission Date: January 23, 2020 Subjective Patient reports felling better. Review of Systems Review of Systems: The patient denies palpitations, lower extremity swelling, sore throat, fevers, chills, sweats, nausea, vomiting, diarrhea , constipation, abdominal pain, pelvic pain, blood in urine or stool, dysuria, urinary frequency or urgency, lightheadedness, dizziness, headache, memory loss, loss of consciousness, rash, abnormal bruising or bleeding, imbalance, focal or generalized weakness, numbness or tingling in arms or legs, generalized arthralgias or myalgias, back or neck pain, or night sweats. The review of systems is otherwise negative other than for that already noted above, and at least 10 systems have been reviewed. Physical Exam Physical Exam: The patient is awake, alert and oriented 3, normocephalic and atraumatic, lying in bed and in no acute distress. HEENT--PERRL, EOMI, mucous membranes and oropharynx normal. Neck--supple. No JVD. No bruits. Thyroid normal, trachea midline, no adenopathy. Heart--normal S1 and S2. No murmurs, rubs or gallops. Lungs--few coarse breath sounds bilaterally, with crackles and tubular breath sounds left upper. No respiratory distress, no accessory muscle use. Abdomen--normal bowel sounds and soft. Nontender. Nondistended. Extremities--no cyanosis or clubbing. No edema. Dermatologic--normal skin turgor, normal color, no abnormal lymph nodes, no rash. Neurologic--cranial nerves II through XII grossly intact. Rheumatologic--normal range of motion. Psychiatric--normal affect. Results & Data Results & Data ([facility]) Vital Signs (Past 12 Hours) Vital Signs Temp Pulse Resp BP Pulse Ox 01/24/20 19:56 75 18 99 01/24/20 16:08 36.8 C 95 H 16 130/66 99 01/24/20 15:20 87 14 99 01/24/20 12:29 36.9 C 86 20 133/67 98 01/24/20 11:22 77 18 98 PG Care Time/CCT Total # of Minutes Spent Total Time Spent with Patient: Total time spent is greater than 50% in coordination of care (as documented) at patient's floor/unit and/or counseling patient: Coding Level of Care Code 37292 Subseq Hosp Care Lvl 3 Diagnoses Acute respiratory failure with hypoxia J96.01 Cavitary lesion of lung J98.4 Pneumonia J18.9 Laterality: left Lung location: upper lobe of lung Pneumonia type: due to unspecified organism Asthma exacerbation J45.51 Asthma persistence: persistent Asthma severity: severe Acute kidney injury N17.9 Hyperglycemia R73.9 Lactic acidosis E87.2 Time Spent (min) 35 (1) Asthma exacerbation Asthma persistence: persistent Asthma severity: severe Qualified Code(s): J45.51 - Severe persistent asthma with (acute) exacerbation (2) Pneumonia Laterality: left Lung location: upper lobe of lung Pneumonia type: due to unspecified organism Qualified Code(s): J18.9 - Pneumonia, unspecified organism
[2020-01-25] MEDS: PIPERACILLIN/TAZOBACTAM 4.5 GM in DEXTROSE 5% 100 ML IV SCH ×4 (00:46→23:13)
--- NOTE | 2020-01-25 05:59 | Electrocardiogram Report ---
Test Reason : Blood Pressure : / mmHG Vent. Rate : 094 BPM Atrial Rate : 094 BPM P-R Int : 126 ms QRS Dur : 072 ms QT Int : 328 ms P-R-T Axes : 045 043 043 degrees QTc Int : 410 ms Normal sinus rhythm Nonspecific T wave abnormality Abnormal ECG No previous ECGs available Confirmed by Omid Obando ([id number]) on 01/25/2020 5:59:37 AM Referred By: [facility] Confirmed By:Omid Obando
--- NOTE | 2020-01-25 06:15 | Electrocardiogram Report ---
Test Reason : Blood Pressure : / mmHG Vent. Rate : 078 BPM Atrial Rate : 078 BPM P-R Int : 148 ms QRS Dur : 068 ms QT Int : 368 ms P-R-T Axes : 053 062 043 degrees QTc Int : 419 ms Normal sinus rhythm Normal ECG When compared with ECG of 23-JAN-2020 17:42, Nonspecific T wave abnormality no longer evident in Anterolateral leads Confirmed by Omid Obando ([id number]) on 01/25/2020 6:14:45 AM Referred By: [facility] Confirmed By:Omid Obando
[2020-01-25 07:03] LABS: Hematocrit (blood only) 32.9 % (42-52); Hemoglobin 11.3 g/dL (14.0-18.0); Immature Granulocytes # (auto) 0.05 K/uL (0.00-0.02); Immature Granulocytes % (auto) 0.3 %; Lymphocytes # (auto) 1.03 K/uL (1.2-3.4); Lymphocytes % (auto) 5.6 %; Mean Corpuscular Hemoglobin 30.5 pg (25-34); Mean Corpuscular Hgb Conc 34.3 g/dL (32-36); Mean Corpuscular Volume 88.7 fL (80-100); Mean Platelet Volume 8.6 fL (7.4-10.4); Monocytes # (auto) 1.17 K/uL (0.11-0.59); Monocytes % (auto) 6.3 %; Neutrophils # (auto) 16.23 K/uL (1.4-6.5); Neutrophils % (auto) 87.8 %; Nucleated RBC # (auto) 0.02 K/uL (0-0); Nucleated RBC % (auto) 0.1 %; Platelet Count 225 K/uL (130-400); RDW Coefficient of Variation 14.5 % (11.5-14.5); RDW Standard Deviation 47.3 fL (36.4-46.3); Red Blood Count 3.71 M/uL (4.7-6.1); White Blood Count 18.48 K/uL (4.8-10.8)
[2020-01-25 07:08] LABS: INR 1.1 (0.9-1.1); Partial Thromboplastin Ratio 0.9; Partial Thromboplastin Time 25.3 Seconds (21.0-31.0); Prothrombin Time 11.3 Seconds (9.0-12.0)
[2020-01-25] MEDS: ALBUT/IPRATROP 3MG/0.5MG NEB 3 ML VIAL NEB SCH ×4 (07:22→19:53)
[2020-01-25] MEDS ORDERED: VANCOMYCIN TROUGH ONE (07:30)
[2020-01-25 07:31] LABS: Albumin Level 2.5 gm/dl (3.4-5.0); BUN Creatinine Ratio 11.3 (10-20); Calcium 7.8 mg/dl (8.5-10.1); Est GFR (African American) 92.5; Est GFR (Non-African American) 79.8; Magnesium 2.7 mg/dl (1.8-2.4)
[2020-01-25 07:48] LABS: Albumin Globulin Ratio 0.6 (0.9-2); Bilirubin,Total 0.8 mg/dl (0.2-1); Total Protein 6.5 gm/dl (6.4-8.2)
[2020-01-25] MEDS: VANCOMYCIN HCL 1,000 MG in SODIUM CHLORIDE 0.9% 250 ML IV SCH (08:06)
[2020-01-25] MEDS: THEOPHYLLINE 300MG EXTENDED REL TAB PO SCH ×4 (08:07→20:19)
[2020-01-25] MEDS: MONTELUKAST SODIUM 10 MG TABLET PO SCH (08:07)
[2020-01-25] MEDS: CETIRIZINE HCL 10 MG TABLET PO SCH (08:07)
[2020-01-25] MEDS: guaiFENesin 600 MG TABCR PO SCH ×2 (08:07→20:19)
[2020-01-25] MEDS: FLUTICASONE/VILANTEROL 200/25MCG 14 PUFFS/INHALER INH SCH (08:09)
--- NOTE | 2020-01-25 08:30 | Pharmacy Report ---
Pharmacy Abx Dose Short Note - Date of Service January 25, 2020 - Assessment & Plan Assessment 49 year old M receiving vancomycin/zosyn for treatment of pneumonia. SCr improved to 1.09 Day # 3 of antimicrobial therapy. Plan Vancomycin * Level of 7.0 mcg/mL is subtherapeutic, however this was only drawn ~9 hours from previous dose and not at steady state. However, do not anticipate patient would be therapeutic at steady state with this dosing, especially given improvement in renal function * Change dose to 1250 mg q10H * Goal trough level 15-20 mcg/mL * Trough ordered for 01/26@5250 Pharmacy will continue to follow and will adjust dose/frequency as necessary. Thank you.
[2020-01-25] MEDS ORDERED: methylPREDNISolone 40 MG in SYRINGE 0 ML IV SCH (09:00)
[2020-01-25] MEDS: SODIUM CHLOR 7% 4 ML NEB NEB PRN (11:19)
--- NOTE | 2020-01-25 11:58 | Pulmonology Progress Note ---
Date of Service January 25, 2020 Assessment & Plan (1) Abnormal chest CT: CTA chest 01/23/2020: Patient has left upper lobe lobe, superior lingular segment air bronchograms and consolidative process. There is also station 4L and para- aortic hilar lymph node enlargement minimal, likely reactive. No peripheral groundglass opacities appreciated. --Left upper lobe consolidative process With air bronchogram And the patient was incarcerated I would continue with broad-spectrum antibiotics to cover for bacterial infection. The location could still be MTB. Continue with airborne precautions. Gold QuantiFERON has already been sent. Recommend getting 3 early childhood education specialist samples for AFB smear/culture. It can be also done acute 8 hours if possible. Needs 3- AFB smears. There is no peripheral groundglass opacities appreciated on the CAT scan. The CT finding does not go with Covid-19. Covid-19 has been ordered. Follow-up results --Asthma Patient is on theophylline on a daily basis along with high-dose ICS/LABA Continue with Breo 200/25 while he is in the hospital. Plan: Follow-up Gold QuantiFERON, follow-up AFB smear/culture Continue with abx. The likelihood of it being bacterial infection is higher. Chest x-ray tomorrow Patient will need repeat CT scan in approximately 6 to 8 weeks to make sure there is evaluation of the left upper lobe infiltrate. DC steroids today Case was discussed with nurse at bedside Please note the above document was generated using voice recognition software. It may contain grammatical, syntax or spelling errors. Admission and Anticipated Discharge Date Admission Date: January 23, 2020 Subjective Patient was seen through the glass window of the door. Not in acute distress. Saturating well. Case was discussed with LOBITO Cabezas. As per Raulito patient is not wheezing at all. Afebrile in the last 24 hours. Review of Systems Review of Systems: Not obtained Physical Exam Physical Exam: Deferred due to preserved PPE. Please look at the hospitalist physical exam. Results & Data Results & Data ([facility]) Vital Signs (Past 12 Hours) Vital Signs Temp Pulse Pulse Resp BP BP Pulse Ox 01/25/20 11:20 75 16 97 01/25/20 07:50 37.0 C 92 H 18 106/51 L 98 01/25/20 07:22 81 16 97 01/25/20 07:00 64 96 01/25/20 06:41 69 103/72 97 01/25/20 06:00 73 98 01/25/20 05:41 77 114/85 99 01/25/20 05:00 61 97 01/25/20 04:40 70 115/66 98 01/25/20 04:00 36.7 C 67 94 01/25/20 03:41 79 111/70 97 01/25/20 03:00 67 95 01/25/20 02:40 66 119/63 92 01/25/20 02:00 75 98 01/25/20 01:40 69 115/62 94 01/25/20 01:00 83 97 01/25/20 00:40 36.7 C 71 115/66 96 01/25/20 00:00 74 96 01/25/20 06:18 01/25/20 06:18 PG Care Time/CCT Total # of Minutes Spent Total Time Spent with Patient: Total time spent is greater than 50% in coordination of care (as documented) at patient's floor/unit and/or counseling patient: Coding Level of Care Code 55548 Subseq Hosp Care Lvl [address] R93.89
[2020-01-25] MEDS: VANCOMYCIN HCL 1,250 MG in SODIUM CHLORIDE 0.9% 250 ML IV SCH (16:15)
[2020-01-25] MEDS: SODIUM CHLORIDE 0.9% 1000ML 1,000 ML IV SCH ×2 (17:13→19:43)
--- NOTE | 2020-01-25 22:20 | Hospitalist Progress Note ---
Date of Service January 25, 2020 Assessment & Plan (1) Acute respiratory failure with hypoxia: Acute respiratory failure with hypoxia/5.7 cm LAUREN consolidation with central cavitation/mediastinal and hilar lymphadenopathy/bilateral upper airway irregular opacities- Admit to monitored bed Respiratory isolation QuantiFERON TB Gold testing ordered Vancomycin IV per pharmacokinetic monitoring Zosyn 4.5 g IV every 8 hours Duonebs every 4 hours while awake and every 2 hours when necessary. Methylprednisolone 40 mg IV every 8 hours will be stopped Zofran 4 mg IV every 6 hours PRN Continue theophylline extended release 300 mg p.o. 4 times daily. theophylline level: it is 7. COVID-19 testing pending from [facility]. Consult pulmonology: given how [facility] test annually for TB, this diagnosis seems doubtful. awaiting quantiferon gold. will obtain 3 AFB sputum samples LIKELY THIS IS A BACTERIAL source Appreciate inputPlan: Follow-up Gold QuantiFERON, follow-up AFB smear/culture Continue with broad-spectrum antibiotics Follow-up chest x-rays to 48 hours. Patient will need repeat CT scan in approximately 6 to 8 weeks to make sure there is evaluation of the left upper lobe infiltrate. (2) Cavitary lesion of lung: See above (3) Pneumonia: See above (4) Asthma exacerbation: See above (5) Acute kidney injury: Creatinine 1.72 upon admission, with baseline 1.08. resolved. dc antibiotics (6) Hyperglycemia: Glucose 167 upon admission. No history of diabetes mellitus. We will check hemoglobin A1c: which is 6 (7) Lactic acidosis: Lactic acid 3.7 upon admission, with repeat 2.4 Admission and Anticipated Discharge Date Admission Date: January 23, 2020 Subjective Patient reports no new symptoms. He is actually feeling quite well. Review of Systems Review of Systems: All systems reviewed & are unremarkable except as noted in HPI & below Physical Exam Physical Exam: The patient is awake, alert and oriented 3, normocephalic and atraumatic, lying in bed and in no acute distress. HEENT--PERRL, EOMI, mucous membranes and oropharynx normal. Neck--supple. No JVD. No bruits. Thyroid normal, trachea midline, no adenopathy. Heart--normal S1 and S2. No murmurs, rubs or gallops. Lungs--few coarse breath sounds now on his right lower lobe. No respiratory distress, no accessory muscle use. Abdomen--normal bowel sounds and soft. Nontender. Nondistended. Extremities--no cyanosis or clubbing. No edema. Dermatologic--normal skin turgor, normal color, no abnormal lymph nodes, no rash. Neurologic--cranial nerves II through XII grossly intact. Rheumatologic--normal range of motion. Psychiatric--normal affect. Results & Data Results & Data ([facility]) Vital Signs (Past 12 Hours) Vital Signs Temp Pulse Resp BP Pulse Ox 01/25/20 19:53 77 16 98 01/25/20 16:48 36.7 C 75 22 112/75 98 01/25/20 15:13 71 16 98 01/25/20 12:00 36.9 C 01/25/20 11:20 75 16 97 PG Care Time/CCT Total # of Minutes Spent Total Time Spent with Patient: Total time spent is greater than 50% in coordination of care (as documented) at patient's floor/unit and/or counseling patient: Coding Level of Care Code 82588 Subseq Hosp Care Lvl 3 Diagnoses Acute respiratory failure with hypoxia J96.01 Cavitary lesion of lung J98.4 Pneumonia J18.9 Laterality: left Lung location: upper lobe of lung Pneumonia type: due to unspecified organism Asthma exacerbation J45.51 Asthma persistence: persistent Asthma severity: severe Acute kidney injury N17.9 Hyperglycemia R73.9 Lactic acidosis E87.2 (1) Asthma exacerbation Asthma persistence: persistent Asthma severity: severe Qualified Code(s): J45.51 - Severe persistent asthma with (acute) exacerbation (2) Pneumonia Laterality: left Lung location: upper lobe of lung Pneumonia type: due to unspecified organism Qualified Code(s): J18.9 - Pneumonia, unspecified organism
[2020-01-26] MEDS: ACETAMINOPHEN 325 MG TAB PO PRN ×3 (00:32→22:47)
[2020-01-26] MEDS: VANCOMYCIN HCL 1,250 MG in SODIUM CHLORIDE 0.9% 250 ML IV SCH ×2 (02:46→13:20)
[2020-01-26] MEDS: SODIUM CHLOR 7% 4 ML NEB NEB PRN (07:29)
[2020-01-26] MEDS: ALBUT/IPRATROP 3MG/0.5MG NEB 3 ML VIAL NEB SCH ×4 (07:29→20:08)
[2020-01-26 07:39] LABS: Basophils # (auto) 0.01 K/uL (0-0.2); Basophils % (auto) 0.1 %; Eosinophils # (auto) 0.05 K/uL (0-0.5); Eosinophils % (auto) 0.4 %; Hematocrit (blood only) 31.4 % (42-52); Immature Granulocytes % (auto) 0.7 %; Lymphocytes # (auto) 1.97 K/uL (1.2-3.4); Lymphocytes % (auto) 14.5 %; Mean Corpuscular Hemoglobin 31.3 pg (25-34); Mean Corpuscular Volume 89.5 fL (80-100); Monocytes # (auto) 0.95 K/uL (0.11-0.59); Neutrophils # (auto) 10.54 K/uL (1.4-6.5); Neutrophils % (auto) 77.3 %; Platelet Count 240 K/uL (130-400); RDW Coefficient of Variation 14.7 % (11.5-14.5); Red Blood Count 3.51 M/uL (4.7-6.1); White Blood Count 13.62 K/uL (4.8-10.8)
[2020-01-26 08:01] LABS: Partial Thromboplastin Ratio 0.9; Partial Thromboplastin Time 26.3 Seconds (21.0-31.0)
[2020-01-26 08:06] LABS: Albumin Level 2.3 gm/dl (3.4-5.0); BUN Creatinine Ratio 11.5 (10-20); Calcium 8.6 mg/dl (8.5-10.1); Creatinine Clr Calc Pharmacy 84.7 ml/min; Est GFR (African American) 84.9; Est GFR (Non-African American) 73.3; Magnesium 2.3 mg/dl (1.8-2.4); Potassium 3.8 mmol/L (3.5-5.1)
[2020-01-26 08:09] LABS: Albumin Globulin Ratio 0.6 (0.9-2); Bilirubin,Total 0.6 mg/dl (0.2-1); Globulin 3.8 gm/dl (2.5-4.0); Total Protein 6.1 gm/dl (6.4-8.2)
--- NOTE | 2020-01-26 08:15 | XRay Report ---
XR chest 1V portable HISTORY: 49 years-old Male f/u follow-up study in a patient with probable pneumonia COMPARISON: CTA chest 01/23/2020, chest radiograph 01/23/2020 TECHNIQUE: Portable AP view of the chest FINDINGS: Persistent airspace opacities of the left greater than right upper lobes without significant change f rom comparison. Cardiac silhouette appears normal. No pneumothorax, pleural effusion or overt pulmona ry edema. Bones of the chest appear grossly intact. IMPRESSION: Persistent left greater than right upper lobe opacities which are better seen on comparis on CT are suggestive of ongoing pneumonia. A one month follow-up chest CT is recommended to document resolution. ACT 112: Negative or not required by law. The above report was generated using voice recognition software. It may contain grammatical, syntax o r spelling errors. Electronically signed by: Uziel Romero M.D. 01/26/2020 8:13 AM
[2020-01-26] MEDS: PIPERACILLIN/TAZOBACTAM 4.5 GM in DEXTROSE 5% 100 ML IV SCH ×3 (08:35→23:53)
[2020-01-26] MEDS: CETIRIZINE HCL 10 MG TABLET PO SCH (08:36)
[2020-01-26] MEDS: guaiFENesin 600 MG TABCR PO SCH ×2 (08:36→22:47)
[2020-01-26] MEDS: FLUTICASONE/VILANTEROL 200/25MCG 14 PUFFS/INHALER INH SCH (08:36)
[2020-01-26] MEDS: THEOPHYLLINE 300MG EXTENDED REL TAB PO SCH ×4 (08:36→21:08)
[2020-01-26] MEDS: MONTELUKAST SODIUM 10 MG TABLET PO SCH (08:37)
--- NOTE | 2020-01-26 13:20 | Hospitalist Progress Note ---
Date of Service January 26, 2020 Assessment & Plan (1) Pneumonia: CT chest on 01/22 showed 5.7 cm LAUREN consolidation with central cavitation/mediastinal and hilar lymphadenopathy/bilateral upper airway irregular opacities. - Testing for TB via AFB smears (2/3 done by today, though results pending) and Quantiferon - Testing for Covid - pending - Pulmonology following - Appreciate recs - Continue vanc/Zosyn - Continue theophylline, Singulair, Zyrtec, DuoNebs, Mucinex, and Breo (2) Cavitary lesion of lung: See above (3) Asthma exacerbation: Initially on steroids for asthma exacerbation. Stopped per pulmonary request. - No wheezing on exam today. (4) Acute kidney injury: Creatinine 1.72 upon admission, with baseline 1.08. - Resolved. (5) Hyperglycemia: Glucose 167 upon admission. A1c was 6%. No history of diabetes mellitus. - Monitor A1c as outpatient. (6) DVT prophylaxis: SCDs - Holding heparin for mild hemoptysis Admission and Anticipated Discharge Date Admission Date: January 23, 2020 Subjective Doing well. Feels occasionally like he is "achy" up and down his body, but otherwise doing well. Reports no fevers/chills, chest pain, shortness of breath, abdominal pain, nausea, or vomiting. Physical Exam Constitutional: WD/WN, vitals as above Eyes: EOM intact bilaterally; no conjunctival abnormality ENMT: external ear and nose normal, oropharynx normal Neck: trachea midline, no thyromegaly normal visual inspection Respiratory: normal respiratory effort, lungs clear to auscultation no respiratory distress Cardiovascular: RRR, no murmur, no edema Gastrointestinal (Abdomen): Inspection/Auscultation: abdomen normal to inspection; abdomen not distended Musculoskeletal: no cyanosis or clubbing, extremities motor strength 5/5 Skin: no rashes, warm and dry Neurologic: moves all extremities and awake Psychiatric: Orientation: alert, oriented to person and cooperative Results & Data Results & Data ([facility]) Vital Signs (Past 12 Hours) Vital Signs Temp Pulse Resp BP Pulse Ox 01/26/20 11:27 74 16 96 01/26/20 08:00 36.8 C 68 18 110/69 96 01/26/20 07:31 68 16 97 01/26/20 07:23 36.9 C 72 18 115/69 98 01/26/20 02:48 36.7 C 68 16 107/62 94 PG Care Time/CCT Total # of Minutes Spent Total Time Spent with Patient: Total time spent is greater than 50% in coordination of care (as documented) at patient's floor/unit and/or counseling patient: Coding Level of Care Code 92027 Subseq Hosp Care Lvl 3 Diagnoses Pneumonia J18.9 Laterality: left Lung location: upper lobe of lung Pneumonia type: due to unspecified organism Cavitary lesion of lung J98.4 Asthma exacerbation J45.51 Asthma persistence: persistent Asthma severity: severe Acute kidney injury N17.9 Hyperglycemia R73.9 DVT prophylaxis Z29.9 (1) Pneumonia Laterality: left Lung location: upper lobe of lung Pneumonia type: due to unspecified organism Qualified Code(s): J18.9 - Pneumonia, unspecified organism (2) Asthma exacerbation Asthma persistence: persistent Asthma severity: severe Qualified Code(s): J45.51 - Severe persistent asthma with (acute) exacerbation
[2020-01-26] MEDS ORDERED: GUAIFENESIN/DEXTROM SYRUP 200MG/20MG 10ML UDC PO PRN (15:39)
--- NOTE | 2020-01-26 18:33 | Pulmonology Progress Note ---
Date of Service January 26, 2020 Assessment & Plan (1) Abnormal chest CT: CTA chest 01/23/2020: Patient has left upper lobe lobe, superior lingular segment air bronchograms and consolidative process. There is also station 4L and para- aortic hilar lymph node enlargement minimal, likely reactive. No peripheral groundglass opacities appreciated. --Left upper lobe consolidative process With air bronchogram And the patient was incarcerated Continue with antibiotics to cover for bacterial infection The location could still be MTB. Continue with airborne precautions. Gold QuantiFERON has already been sent. Recommend getting 3 municipal services manager samples for AFB smear/culture. It can be also done acute 8 hours if possible. Needs 3- AFB smears. There is no peripheral groundglass opacities appreciated on the CAT scan. The CT finding does not go with Covid-19. Covid-19 has been ordered. Follow-up results --Asthma Patient is on theophylline on a daily basis along with high-dose ICS/LABA Continue with Breo 200/25 while he is in the hospital. --Hemoptysis Likely from induced coughing Symptomatic therapy Guaifenesin with DM Plan: Follow-up Gold QuantiFERON, follow-up AFB smear/culture Continue with abx. The likelihood of it being bacterial infection is higher. Given nasal MRSA is negative. I will DC vancomycin. Add doxycycline for atypical coverage. Chest x-ray from today shows improvement in the left upper lobe infiltrate. Given that there is improvement in infiltrate the likelihood of bacterial infection is high. Patient will need repeat CT scan in approximately 6 to 8 weeks to make sure there is evaluation of the left upper lobe infiltrate. Case was discussed with nurse at bedside Please note the above document was generated using voice recognition software. It may contain grammatical, syntax or spelling errors. Admission and Anticipated Discharge Date Admission Date: January 23, 2020 Subjective Patient was seen through the glass window of the door. Does not seem to be in any acute distress. Case was discussed with LOBITO Cabezas. Patient is feeling much better. He is having some hemoptysis, blood-streaked sputum. Denies any chest pain. Review of Systems Review of Systems: Not obtained Physical Exam Physical Exam: Deferred due to preserved PPE. Please look at the hospitalist physical exam. Results & Data Results & Data ([facility]) Vital Signs (Past 12 Hours) Vital Signs Temp Pulse Pulse Resp BP Pulse Ox 01/26/20 15:09 80 16 97 01/26/20 14:20 77 01/26/20 11:27 74 16 96 01/26/20 08:00 36.8 C 68 18 110/69 96 01/26/20 07:31 68 16 97 01/26/20 07:23 36.9 C 72 18 115/69 98 01/26/20 06:48 01/26/20 06:48 PG Care Time/CCT Total # of Minutes Spent Total Time Spent with Patient: Total time spent is greater than 50% in coordination of care (as documented) at patient's floor/unit and/or counseling patient: Coding Level of Care Code 01956 Subseq Hosp Care Lvl [address] R93.89
[2020-01-26] MEDS: DOXYCYCLINE HYCLATE 100 MG CAP PO SCH (21:08)
[2020-01-26] MEDS ORDERED: VANCOMYCIN TROUGH ONE (21:30)
[2020-01-26] MEDS: ONDANSETRON INJ 2 MG/ML 2 ML VIAL IV PRN (23:58)
[2020-01-27] MEDS: PIPERACILLIN/TAZOBACTAM 4.5 GM in DEXTROSE 5% 100 ML IV SCH ×2 (07:38→16:34)
[2020-01-27] MEDS: THEOPHYLLINE 300MG EXTENDED REL TAB PO SCH ×4 (07:39→20:09)
[2020-01-27] MEDS: MONTELUKAST SODIUM 10 MG TABLET PO SCH (07:39)
[2020-01-27] MEDS: guaiFENesin 600 MG TABCR PO SCH ×2 (07:40→20:08)
[2020-01-27] MEDS: CETIRIZINE HCL 10 MG TABLET PO SCH (07:40)
[2020-01-27] MEDS: DOXYCYCLINE HYCLATE 100 MG CAP PO SCH ×2 (07:40→20:08)
[2020-01-27] MEDS: ALBUT/IPRATROP 3MG/0.5MG NEB 3 ML VIAL NEB SCH ×4 (07:45→19:17)
[2020-01-27] MEDS: SODIUM CHLOR 7% 4 ML NEB NEB PRN (07:45)
[2020-01-27 08:08] LABS: Hematocrit (blood only) 37.9 % (42-52); Hemoglobin 13.4 g/dL (14.0-18.0); Mean Corpuscular Hemoglobin 30.9 pg (25-34); Mean Corpuscular Hgb Conc 35.4 g/dL (32-36); Mean Corpuscular Volume 87.5 fL (80-100); Mean Platelet Volume 8.7 fL (7.4-10.4); Platelet Count 271 K/uL (130-400); RDW Coefficient of Variation 14.4 % (11.5-14.5); RDW Standard Deviation 46.7 fL (36.4-46.3); Red Blood Count 4.33 M/uL (4.7-6.1); White Blood Count 12.14 K/uL (4.8-10.8)
[2020-01-27] MEDS: ACETAMINOPHEN 325 MG TAB PO PRN ×3 (08:31→22:22)
[2020-01-27] MEDS: FLUTICASONE/VILANTEROL 200/25MCG 14 PUFFS/INHALER INH SCH (08:32)
[2020-01-27 08:39] LABS: Partial Thromboplastin Time 27.6 Seconds (21.0-31.0)
[2020-01-27 10:00] LABS: Albumin Level 2.3 gm/dl (3.4-5.0); BUN Creatinine Ratio 10.7 (10-20); Calcium 8.5 mg/dl (8.5-10.1); Creatinine Clr Calc Pharmacy 69.3 ml/min; Est GFR (African American) 66.6; Est GFR (Non-African American) 57.5; Magnesium 1.9 mg/dl (1.8-2.4); Potassium 3.9 mmol/L (3.5-5.1)
[2020-01-27 10:06] LABS: Albumin Globulin Ratio 0.5 (0.9-2); Bilirubin,Total 1.3 mg/dl (0.2-1); Globulin 4.5 gm/dl (2.5-4.0); Total Protein 6.8 gm/dl (6.4-8.2)
--- NOTE | 2020-01-27 11:07 | Pulmonology Progress Note ---
Date of Service January 27, 2020 Assessment & Plan (1) Abnormal chest CT: CTA chest 01/23/2020: Patient has left upper lobe lobe, superior lingular segment air bronchograms and consolidative process. There is also station 4L and para- aortic hilar lymph node enlargement minimal, likely reactive. No peripheral groundglass opacities appreciated. --Left upper lobe consolidative process With air bronchogram In a patient who is from present Continue with antibiotics to cover for bacterial infection The location of the infiltrate could still be MTB. Continue with airborne precautions. Gold QuantiFERON has already been sent. Recommend getting 3 endocrinologist marty ples for AFB smear/culture. It can be also done acute 8 hours if possible. Needs 3- AFB smears. There is no peripheral groundglass opacities appreciated on the CAT scan. The CT finding does not go with Covid-19. Covid-19 has been done in the present, awaiting results --Asthma Patient is on theophylline on a daily basis along with high-dose ICS/LABA Continue with Breo 200/25 while he is in the hospital. --Hemoptysis Likely from induced coughing Resolving Symptomatic therapy Guaifenesin with DM Plan: Follow-up Gold QuantiFERON 2 out of 3 AFB smear are negative. If the third smear is negative patient can be taken off airborne isolation with respect to possible MTB. Continue with abx. The likelihood of it being bacterial infection is higher. Follow the chest x-ray from tomorrow. Patient will need repeat CT scan in approximately 6 to 8 weeks to make sure there is evaluation of the left upper lobe infiltrate. Case was discussed with nurse at bedside Creatinine and LFTs trended up a little today. Could be from Zosyn. Recommend monitoring them as well as giving a little fluid. Please note the above document was generated using voice recognition software. It may contain grammatical, syntax or spelling errors. Admission and Anticipated Discharge Date Admission Date: January 23, 2020 Subjective Patient seen and examined through glass window of the door. Not in any acute distress. Case was discussed with LOBITO Rodriguez. Respiratory status of the patient is improved. Breathing is better. Coughing is decreased in intensity. Does complain of left-sided chest pain when he coughs a lot. But it resolves with giving Tylenol. Review of Systems Review of Systems: Not obtained Physical Exam Physical Exam: Deferred due to preserved PPE. Please look at the hospitalist physical exam. Results & Data Results & Data ([facility]) Vital Signs (Past 12 Hours) Vital Signs Temp Pulse Pulse Resp BP BP Pulse Ox 01/27/20 08:30 82 01/27/20 07:47 36.8 C 86 18 104/70 132/68 96 01/27/20 07:45 87 16 97 01/27/20 04:00 36.4 C L 77 16 129/80 99 01/27/20 00:00 36.6 C 87 80 16 126/79 126/79 96 01/27/20 07:31 01/27/20 07:31 Microbiology 01/26/20 08:00 Sputum, Expectorated Acid Fast Bacilli Smear - Final 01/25/20 Unknown Sputum, Expectorated Acid Fast Bacilli Smear - Final 01/23/20 18:20 Blood Aerobic Blood Culture - Preliminary No growth in Aerobic bottle after 48 hours. 01/23/20 18:20 Blood Anaerobic Blood Culture - Preliminary No growth in Anaerobic bottle after 48 hours. 01/23/20 18:20 Blood Aerobic Blood Culture - Preliminary No growth in Aerobic bottle after 48 hours. 01/23/20 18:20 Blood Anaerobic Blood Culture - Preliminary No growth in Anaerobic bottle after 48 hours. PG Care Time/CCT Total # of Minutes Spent Total Time Spent with Patient: Total time spent is greater than 50% in coordina tion of care (as documented) at patient's floor/unit and/or counseling patient: Coding Level of Care Code 37993 Subseq Hosp Care Lvl [address] R93.89
--- NOTE | 2020-01-27 14:50 | Hospitalist Progress Note ---
Date of Service January 27, 2020 Assessment & Plan (1) Pneumonia: CT chest on 01/22 showed 5.7 cm LAUREN consolidation with central cavitation/mediastinal and hilar lymphadenopathy/bilateral upper airway irregular opacities. - Testing for TB via AFB smears (3/3 negative) and Quantiferon - Will discontinue airborne precautions today. - Covid-19 never sent; however, he will need one to return to [facility], so will send one now. - Pulmonology following - Appreciate recs - Continue vanc/Zosyn - Continue theophylline, Singulair, Zyrtec, DuoNebs, Mucinex, and Breo (2) Acute kidney injury: Creatinine 1.72 upon admission, with baseline 1.08. - Resolved, then back up slightly on 01/26. Will give IV fluids. (3) Cavitary lesion of lung: See above (4) Asthma exacerbation: Initially on steroids for asthma exacerbation. Stopped per pulmonary request. - No wheezing on exam today. (5) Hyperglycemia: Glucose 167 upon admission. A1c was 6%. No history of diabetes mellitus. - Monitor A1c as outpatient. (6) DVT prophylaxis: SCDs - Holding heparin for mild hemoptysis Admission and Anticipated Discharge Date Admission Date: January 23, 2020 Subjective Doing ok today. Less energy today. Reports no fevers/chills, chest pain, shortness of breath, abdominal pain, nausea, or vomiting. Physical Exam Constitutional: WD/WN, vitals as above Eyes: EOM intact bilaterally; no conjunctival abnormality ENMT: external ear and nose normal, oropharynx normal Neck: trachea midline, no thyromegaly normal visual inspection Respiratory: normal respiratory effort, lungs clear to auscultation no respiratory distress Cardiovascular: RRR, no murmur, no edema Gastrointestinal (Abdomen): Inspection/Auscultation: abdomen normal to inspection; abdomen not distended Musculoskeletal: no cyanosis or clubbing, extremities motor strength 5/5 Skin: no rashes, warm and dry Neurologic: moves all extremities and awake Psychiatric: Orientation: alert, oriented to person and cooperative Results & Data Results & Data ([facility]) Vital Signs (Past 12 Hours) Vital Signs Temp Pulse Pulse Resp BP BP Pulse Ox 01/27/20 11:23 67 14 96 01/27/20 08:30 82 01/27/20 07:47 36.8 C 86 18 104/70 132/68 96 01/27/20 07:45 87 16 97 01/27/20 04:00 36.4 C L 77 16 129/80 99 PG Care Time/CCT Total # of Minutes Spent Total Time Spent with Patient: Total time spent is greater than 50% in coordination of care (as documented) at patient's floor/unit and/or counseling patient: Coding Level of Care Code 89981 Subseq Hosp Care Lvl 3 Diagnoses Pneumonia J18.9 Laterality: left Lung location: upper lobe of lung Pneumonia type: due to unspecified organism Acute kidney injury N17.9 Cavitary lesion of lung J98.4 Asthma exacerbation J45.51 Asthma persistence: persistent Asthma severity: severe Hyperglycemia R73.9 DVT prophylaxis Z29.9 (1) Pneumonia Laterality: left Lung location: upper lobe of lung Pneumonia type: due to unspecified organism Qualified Code(s): J18.9 - Pneumonia, unspecified organism (2) Asthma exacerbation Asthma persistence: persistent Asthma severity: severe Qualified Code(s): J45.51 - Severe persistent asthma with (acute) exacerbation
[2020-01-27] MEDS ORDERED: SODIUM CHLORIDE 0.9% 1000ML 1,000 ML IV SCH (15:00)
[2020-01-27] MEDS: ONDANSETRON INJ 2 MG/ML 2 ML VIAL IV PRN (20:10)
[2020-01-28] MEDS: PIPERACILLIN/TAZOBACTAM 4.5 GM in DEXTROSE 5% 100 ML IV SCH ×4 (01:14→23:12)
[2020-01-28 06:54] LABS: Hematocrit (blood only) 37.1 % (42-52); Hemoglobin 12.7 g/dL (14.0-18.0); Mean Corpuscular Hemoglobin 30.5 pg (25-34); Mean Corpuscular Hgb Conc 34.2 g/dL (32-36); Mean Platelet Volume 8.5 fL (7.4-10.4); Platelet Count 303 K/uL (130-400); RDW Coefficient of Variation 14.3 % (11.5-14.5); RDW Standard Deviation 46.5 fL (36.4-46.3); Red Blood Count 4.17 M/uL (4.7-6.1); White Blood Count 11.06 K/uL (4.8-10.8)
[2020-01-28 07:15] LABS: Albumin Level 2.2 gm/dl (3.4-5.0); BUN Creatinine Ratio 9.1 (10-20); Calcium 8.2 mg/dl (8.5-10.1); Creatinine Clr Calc Pharmacy 63.6 ml/min; Est GFR (Non-African American) 51.8; Magnesium 2.2 mg/dl (1.8-2.4); Potassium 3.9 mmol/L (3.5-5.1)
[2020-01-28 07:18] LABS: Albumin Globulin Ratio 0.5 (0.9-2); Bilirubin,Total 1.2 mg/dl (0.2-1); Globulin 4.4 gm/dl (2.5-4.0); Phosphorus 2.5 mg/dl (2.5-4.9); Total Protein 6.6 gm/dl (6.4-8.2)
[2020-01-28] MEDS: ALBUT/IPRATROP 3MG/0.5MG NEB 3 ML VIAL NEB SCH ×4 (07:23→19:50)
[2020-01-28] MEDS: guaiFENesin 600 MG TABCR PO SCH ×2 (08:00→21:40)
[2020-01-28] MEDS: DOXYCYCLINE HYCLATE 100 MG CAP PO SCH ×2 (08:00→21:40)
[2020-01-28] MEDS: THEOPHYLLINE 300MG EXTENDED REL TAB PO SCH ×4 (08:00→21:40)
[2020-01-28] MEDS: CETIRIZINE HCL 10 MG TABLET PO SCH (08:01)
[2020-01-28] MEDS: MONTELUKAST SODIUM 10 MG TABLET PO SCH (08:01)
[2020-01-28] MEDS: FLUTICASONE/VILANTEROL 200/25MCG 14 PUFFS/INHALER INH SCH (08:02)
[2020-01-28] MEDS: ACETAMINOPHEN 325 MG TAB PO PRN ×3 (08:02→21:40)
--- NOTE | 2020-01-28 10:31 | XRay Report ---
XR chest 1V portable HISTORY: 49 years-old Male Follow-up follow-up study in a patient with cough COMPARISON: Chest radiograph 01/26/2020, CTA chest 01/23/2020 TECHNIQUE: Portable AP view of the chest FINDINGS: Cardiac silhouette is normal. Left hilar/the right hilar airspace opacity appears stable to slightly improved. There is improved aeration of the upper lung zones. No pneumothorax, large pleural effusion or overt pulmonary edema. Bones appear grossly intact. IMPRESSION: Stable to slightly improved left hilar/suprahilar opacity with mildly improved aeration o f the upper lung zones. Findings are suggestive of persistent pneumonia. Continued follow-up recommen ded to document complete resolution. ACT 112: Negative or not required by law. The above report was generated using voice recognition software. It may contain grammatical, syntax o r spelling errors. Electronically signed by: Uziel Romero M.D. 01/28/2020 10:30 AM
[2020-01-28] MEDS ORDERED: NORMOSOL-R 1,000 ML IV ONE (12:02)
[2020-01-28 12:25] LABS: Basophils # (auto) 0.02 K/uL (0-0.2); Basophils % (auto) 0.2 %; Eosinophils # (auto) 0.37 K/uL (0-0.5); Eosinophils % (auto) 3.3 %; Immature Granulocytes # (auto) 0.49 K/uL (0.00-0.02); Immature Granulocytes % (auto) 4.3 %; Lymphocytes # (auto) 2.08 K/uL (1.2-3.4); Lymphocytes % (auto) 18.3 %; Monocytes # (auto) 0.95 K/uL (0.11-0.59); Monocytes % (auto) 8.4 %; Neutrophils # (auto) 7.43 K/uL (1.4-6.5); Neutrophils % (auto) 65.5 %
--- NOTE | 2020-01-28 13:09 | Pulmonology Progress Note ---
Date of Service January 28, 2020 Assessment & Plan (1) Abnormal chest CT: CTA chest 01/23/2020: Patient has left upper lobe lobe, superior lingular segment air bronchograms and consolidative process. There is also station 4L and para- aortic hilar lymph node enlargement minimal, likely reactive. No peripheral groundglass opacities appreciated. --Left upper lobe consolidative process With air bronchogram In a patient who is from [facility] Repeat chest x-ray today shows stable to slight improvement of left hilar suprahilar opacity. Continue with antibiotics to cover for bacterial infection The location of the infiltrate could still be MTB. Although 3 AM sputum collections are negative for AFB, cultures could still be positive. Therefore, continue with airborne precautions. Gold QuantiFERON is pending. COVID-19 testing has been negative. There are no peripheral groundglass o pacities. --Asthma Patient is on theophylline on a daily basis along with high-dose ICS/LABA Theophylline level is 7 Continue with Breo 200/25 while he is in the hospital. --Hemoptysis Per discussion with the patient, this is now completely resolved. Likely from induced coughing and secondary to the pneumonia Continue Guaifenesin with DM Plan: Follow-up Gold QuantiFERON 3 out of 3 AFB smear are negative. Continue with isolation until QuantiFERON or cultures come back negative. Continue with antibiotic therapy as chest x-ray today shows some improvement which would be consistent with pneumonia Patient will need repeat CT scan regarding left sided infiltrate * Patient is released date from [facility] is April 04. At this time he plans on returning to [facility] * I recommended to the patient that he obtain records from [facility] once established after release * I further discussed the need for repeat CT scan in 4 to 8 weeks. We will try and coordinate outpatient pulmonary follow-up in [address] scan that morning. * Appointment request has been placed for patient to see Dr. Jiang with CT scan in the morning prior to appointment LFTs have corrected. Creatinine elevated at 1.56. Continue to follow. Please note the above document was generated using voice recognition software. It may contain grammatical, syntax or spelling errors. Thank you for including us in the care of this patient. Please refer to Dr. Jiang's addendum for further information. Admission and Anticipated Discharge Date Admission Date: January 23, 2020 Subjective Attending: Dr. Jiang Patient seen and examined at bedside. He indicates that his oxygen requirements are improved. He has no further hemoptysis. He does complain of pain in the left midlung region in his back when he coughs forcefully. He has no specific pain at rest. Indicates he has difficulty expectorating. He denies any fever or chills. He has no diaphoresis. Other than his pain with cough he has no muscular pain intercostally. He denies any prior history of TB exposure that he is aware of. He states he has been in [facility] for 6 years and is not aware of any contact. The patient was negative for COVID-19. 3 AM AFB samples have been negative. QuantiFERON gold is still pending. Patient has no further acute complaints. Review of Systems Review of Systems: All systems reviewed & are unremarkable except as noted in HPI & below Physical Exam Physical Exam: GENERAL : No acute distress. EYES: No icterus, gaze conjugate NOSE: No evidence of epistaxis MOUTH: No lesions or candidiasis. Mucosa is moist NECK: Supple LUNGS: Patient has diminished globally. This is most likely due to poor inspiratory effort. There is no evidence of bronchospasm, rales, rhonchi. HEART: Regular, rate controlled in the 80s ABDOMEN: Soft, NT, ND, BS Present EXTREMITIES: No LE edema, pedal pulses intact and equal bilaterally NEURO: A&OX3 Results & Data Results & Data ([facility]) Vital Signs (Past 12 Hours) Vital Signs Temp Pulse Resp BP BP Pulse Ox 01/28/20 12:22 36.6 C 90 18 113/81 98 01/28/20 11:06 85 16 94 01/28/20 08:08 36.4 C L 92 H 16 114/80 96 01/28/20 07:50 36.5 C 86 18 121/69 95 01/28/20 07:25 82 16 95 01/28/20 04:46 37 C 84 18 112/65 97 01/28/20 01:17 36.8 C 87 18 109/65 95 Laboratory Results 01/28/20 06:18 01/28/20 06:18 Diagnostic Findings XR chest 1V portable HISTORY: 49 years-old Male Follow-up follow-up study in a patient with cough COMPARISON: Chest radiograph 01/26/2020, CTA chest 01/23/2020 TECHNIQUE: Portable AP view of the chest FINDINGS: Cardiac silhouette is normal. Left hilar/the right hilar airspace opacity appears stable to slightly improved. There is improved aeration of the upper lung zones. No pneumothorax, large pleural effusion or overt pulmonary edema. Bones appear grossly intact. IMPRESSION: Stable to slightly improved left hilar/suprahilar opacity with mildly improved aeration of the upper lung zones. Findings are suggestive of persistent pneumonia. Continued follow-up recommended to document complete resolution. ACT 112: Negative or not required by law. The above report was generated using voice recognition software. It may contain grammatical, syntax or spelling errors. Electronically signed by: Uziel Romero M.D. 01/28/2020 10:30 AM PG Care Time/CCT Total # of Minutes Spent Total Time Spent with Patient: Total time spent is greater than 50% in coordination of care (as documented) at patient's floor/unit and/or counseling patient: 30 minutes Coding Level of Care Code 75930 Subseq Hosp Care Lvl [address] R93.89
[2020-01-28 13:45] LABS: Appearance Urine Clear (Clear); Bilirubin Urine Negative (Negative); Blood Urine Negative (Negative); Color Urine Yellow; Glucose Urine UA Negative (Negative); Ketones Urine Negative (Negative); Leukocyte Esterase Urine Negative (Negative); Nitrite Urine Negative (Negative); Protein Urine Negative (Negative); Specific Gravity Urine 1.015 (1.000-1.030); Urobilinogen Urine Positive (Negative); pH Urine 7.5 (4.5-7.5)
--- NOTE | 2020-01-28 14:29 | Hospitalist Progress Note ---
Date of Service January 28, 2020 Assessment & Plan (1) Pneumonia: CT chest on 01/22 showed 5.7 cm LAUREN consolidation with central cavitation/mediastinal and hilar lymphadenopathy/bilateral upper airway irregular opacities. - Testing for TB via AFB smears (3/3 negative) and Quantiferon - Covid-19 was negative on 01/26 - Pulmonology following - Appreciate recs - Continue Zosyn & doxycycline - Continue theophylline, Singulair, Zyrtec, DuoNebs, Mucinex, and Breo -> Doing better today. (2) Acute kidney injury: Creatinine 1.72 upon admission, with baseline 1.08. - Resolved, then back up slightly on 01/26 & 01/27. - Will get renal u/s, UA, eosinophils. Possibly due to AIN from Zosyn? (3) Cavitary lesion of lung: See above (4) Asthma exacerbation: Initially on steroids for asthma exacerbation. Stopped per pulmonary request. - No wheezing on exam today. (5) Hyperglycemia: Glucose 167 upon admission. A1c was 6%. No history of diabetes mellitus. - Monitor A1c as outpatient. (6) DVT prophylaxis: SCDs - Holding heparin for mild hemoptysis Admission and Anticipated Discharge Date Admission Date: January 23, 2020 Subjective Feels better today, but still not much appetite. Reports no fevers/chills, chest pain, shortness of breath, abdominal pain, nausea, or vomiting. Physical Exam Constitutional: WD/WN, vitals as above Eyes: EOM intact bilaterally; no conjunctival abnormality ENMT: external ear and nose normal, oropharynx normal Neck: trachea midline, no thyromegaly normal visual inspection Respiratory: normal respiratory effort, lungs clear to auscultation no respiratory distress Cardiovascular: RRR, no murmur, no edema Gastrointestinal (Abdomen): Inspection/Auscultation: abdomen normal to inspection; abdomen not distended Musculoskeletal: no cyanosis or clubbing, extremities motor strength 5/5 Skin: no rashes, warm and dry Neurologic: moves all extremities and awake Psychiatric: Orientation: alert, oriented to person and cooperative Results & Data Results & Data ([facility]) Vital Signs (Past 12 Hours) Vital Signs Temp Pulse Resp BP BP Pulse Ox 01/28/20 12:22 36.6 C 90 18 113/81 98 01/28/20 11:06 85 16 94 01/28/20 08:08 36.4 C L 92 H 16 114/80 96 01/28/20 07:50 36.5 C 86 18 121/69 95 01/28/20 07:25 82 16 95 01/28/20 04:46 37 C 84 18 112/65 97 PG Care Time/CCT Total # of Minutes Spent Total Time Spent with Patient: Total time spent is greater than 50% in coordination of care (as documented) at patient's floor/unit and/or counseling patient: Coding Level of Care Code 53868 Subseq Hosp Care Lvl 2 Diagnoses Pneumonia J18.9 Laterality: left Lung location: upper lobe of lung Pneumonia type: due to unspecified organism Acute kidney injury N17.9 Cavitary lesion of lung J98.4 Asthma exacerbation J45.51 Asthma persistence: persistent Asthma severity: severe Hyperglycemia R73.9 DVT prophylaxis Z29.9 (1) Pneumonia Laterality: left Lung location: upper lobe of lung Pneumonia type: due to unspecified organism Qualified Code(s): J18.9 - Pneumonia, unspecified organism (2) Asthma exacerbation Asthma persistence: persistent Asthma severity: severe Qualified Code(s): J45.51 - Severe persistent asthma with (acute) exacerbation
[2020-01-28 14:48] LABS: Quantiferon Mitogen-NIL 2.39 IU/mL; Quantiferon NIL 0.01 IU/mL; Quantiferon TB Gold Plus NEGATIVE (NEGATIVE); Quantiferon TB1-NIL 0.01 IU/mL; Quantiferon TB2-NIL 0.01 IU/mL
--- NOTE | 2020-01-28 16:10 | Ultrasound Report ---
US renal/blad retro comp HISTORY: 49 years-old Male Acute kidney injury acute kidney injury COMPARISON: CTA of the chest 01/23/2020 TECHNIQUE: Multiple real-time sonographic images of the kidneys and urinary bladder were obtained ass essing grayscale appearance and color flow FINDINGS: The right kidney measures 11.5 cm in length and demonstrates no renal calculi, hydronephrosis or susp icious mass lesion. Left kidney measures 11.6 cm in length and demonstrates no renal calculi or hydronephrosis. 2.9 x 2.3 x 1.9 cm cyst involves the superior pole left kidney. Urinary bladder is unremarkable. Ureteral jets not identified. IMPRESSION: 1. No renal calculi or hydronephrosis. 2. 2.9 cm left renal cyst. ACT 112: Negative or not required by law. The above report was generated using voice recognition software. It may contain grammatical, syntax o r spelling errors. Electronically signed by: Uziel Romero M.D. 01/28/2020 4:09 PM
[2020-01-28] MEDS ORDERED: HYDROmorphone INJ 0.5 MG/0.5 ML SYR IV STA (23:13)
[2020-01-28] MEDS ORDERED: HYDROmorphone INJ 0.5 MG/0.5 ML SYR ONE (23:18)
[2020-01-29 05:58] LABS: Basophils # (auto) 0.01 K/uL (0-0.2); Basophils % (auto) 0.1 %; Eosinophils # (auto) 0.31 K/uL (0-0.5); Eosinophils % (auto) 3.1 %; Hematocrit (blood only) 37.1 % (42-52); Hemoglobin 12.7 g/dL (14.0-18.0); Immature Granulocytes # (auto) 0.39 K/uL (0.00-0.02); Immature Granulocytes % (auto) 3.9 %; Lymphocytes # (auto) 1.68 K/uL (1.2-3.4); Lymphocytes % (auto) 16.8 %; Mean Corpuscular Hemoglobin 30.8 pg (25-34); Mean Corpuscular Hgb Conc 34.2 g/dL (32-36); Mean Corpuscular Volume 89.8 fL (80-100); Mean Platelet Volume 8.4 fL (7.4-10.4); Monocytes # (auto) 0.81 K/uL (0.11-0.59); Monocytes % (auto) 8.1 %; Neutrophils # (auto) 6.78 K/uL (1.4-6.5); Platelet Count 330 K/uL (130-400); RDW Standard Deviation 46.2 fL (36.4-46.3); Red Blood Count 4.13 M/uL (4.7-6.1); White Blood Count 9.98 K/uL (4.8-10.8)
[2020-01-29 06:31] LABS: Albumin Level 2.4 gm/dl (3.4-5.0); BUN Creatinine Ratio 7.5 (10-20); Calcium 8.5 mg/dl (8.5-10.1); Creatinine Clr Calc Pharmacy 66.1 ml/min; Est GFR (African American) 62.9; Est GFR (Non-African American) 54.3; Magnesium 2.3 mg/dl (1.8-2.4); Potassium 4.8 mmol/L (3.5-5.1)
[2020-01-29 06:36] LABS: Albumin Globulin Ratio 0.5 (0.9-2); Globulin 4.7 gm/dl (2.5-4.0); Total Protein 7.1 gm/dl (6.4-8.2)
[2020-01-29] MEDS: ALBUT/IPRATROP 3MG/0.5MG NEB 3 ML VIAL NEB SCH ×4 (06:59→19:24)
[2020-01-29] MEDS: PIPERACILLIN/TAZOBACTAM 4.5 GM in DEXTROSE 5% 100 ML IV SCH (10:05)
[2020-01-29] MEDS: DOXYCYCLINE HYCLATE 100 MG CAP PO SCH (10:08)
[2020-01-29] MEDS: CETIRIZINE HCL 10 MG TABLET PO SCH (10:08)
[2020-01-29] MEDS: guaiFENesin 600 MG TABCR PO SCH (10:08)
[2020-01-29] MEDS: MONTELUKAST SODIUM 10 MG TABLET PO SCH (10:09)
[2020-01-29] MEDS: FLUTICASONE/VILANTEROL 200/25MCG 14 PUFFS/INHALER INH SCH (10:10)
[2020-01-29] MEDS: THEOPHYLLINE 300MG EXTENDED REL TAB PO SCH ×4 (10:10→20:33)
[2020-01-29] MEDS: ACETAMINOPHEN 325 MG TAB PO PRN (10:17)
[2020-01-29] MEDS: ONDANSETRON INJ 2 MG/ML 2 ML VIAL IV PRN (11:36)
--- NOTE | 2020-01-29 12:02 | Pulmonology Progress Note ---
Date of Service January 29, 2020 Assessment & Plan (1) Abnormal chest CT: CTA chest 01/23/2020: Patient has left upper lobe lobe, superior lingular segment air bronchograms and consolidative process. There is also station 4L and para- aortic hilar lymph node enlargement minimal, likely reactive. No peripheral groundglass opacities appreciated. --Left upper lobe consolidative process With air bronchogram In a patient who is from [facility] Repeat chest x-ray 01/28/2020 stable to slight improvement of left hilar suprahilar opacity Continue with antibiotics to cover for bacterial infection Follow-up appointment with CT chest without contrast in 4 weeks with the pulmonary office The location of the infiltrate could still be MTB. 3 AM sputum collections are negative for AFB. QuantiFERON gold is also negative Discontinue airborne precautions From a pulmonary standpoint patient can be returned to [place] COVID-19 testing has been negative. There are no peripheral groundglass opacities. --Asthma Patient is on theophylline on a daily basis along with high-dose ICS/LABA Theophylline level is 7 Continue with Breo 200/25 while he is in the hospital. Go back to [facility] formulary on discharge --Hemoptysis Per discussion with the patient, this is now completely resolved. Likely from induced coughing and secondary to the pneumonia Continue Guaifenesin with DM Plan: QuantiFERON gold negative 3 out of 3 AFB smear are negative. Discontinue isolation precaution. Cultures to be followed outpatient. Continue with antibiotic therapy as chest x-ray shows some improvement which would be consistent with pneumonia Patient will need repeat CT scan regarding left sided infiltrate * Patient is [facility] date [facility] is April 04. At this time he plans on returning to [facility] * I recommended to the patient that he obtain records from [facility] once established after release * I further discussed the need for repeat CT scan in 4 to 8 weeks. We will coordinate outpatient pulmonary follow-up in [address] scan that morning. * Appointment request has been placed for patient to see Dr. Jiang with CT sc an in the morning prior to appointment Please note the above document was generated using voice recognition software. It may contain grammatical, syntax or spelling errors. Thank you for including us in the care of this patient. We will sign off at this time. Please refer to Dr. Jiang's addendum for further information. Admission and Anticipated Discharge Date Admission Date: January 23, 2020 Subjective Attending: Dr. Jiang Patient seen and examined at bedside. The patient was negative for COVID-19. 3 AM AFB samples have been negative. QuantiFERON gold is negative. Patient has no shortness of breath. He has not been requiring supplemental oxygen. His chief complaint is fatigue. He also has some left-sided abdominal pain. Renal ultrasound yesterday with left renal cyst. Patient has no productive sputum. D enies fever or chills. No further hemoptysis. Patient has no further acute complaints. Review of Systems Review of Systems: All systems reviewed & are unremarkable except as noted in HPI & below Physical Exam Physical Exam: GENERAL : No acute distress EYES: No icterus, gaze conjugate NOSE: No evidence of epistaxis MOUTH: No lesions or candidiasis NECK: Supple LUNGS: Generally clear to auscultation bilaterally with a few crackles at the bases which clear with forced cough. HEART: Regular, rate controlled ABDOMEN: Soft, NT, ND, BS Present EXTREMITIES: No LE edema, pedal pulses intact NEURO: A&OX3 Results & Data Results & Data ([facility]) Vital Signs (Past 12 Hours) Vital Signs Temp Pulse Pulse Pulse Resp BP BP 01/29/20 11:40 36.9 C 86 18 102/59 L 01/29/20 11:14 85 01/29/20 10:47 86 01/29/20 07:52 36.8 C 88 18 96/60 L 01/29/20 07:00 87 16 01/29/20 03:15 36.8 C 77 20 101/62 01/29/20 00:00 36.9 C 74 16 100/53 L Pulse Ox 01/29/20 11:40 99 01/29/20 11:14 93 01/29/20 10:47 01/29/20 07:52 96 01/29/20 07:00 96 01/29/20 03:15 97 01/29/20 00:00 95 Laboratory Results 01/29/20 05:38 01/29/20 05:38 Diagnostic Findings No new diagnostic x-rays since yesterday PG Care Time/CCT Total # of Minutes Spent Total Time Spent with Patient: Total time spent is greater than 50% in coordination of care (as documented) at patient's floor/unit and/or counseling patient: 30 minutes Coding Level of Care Code 59358 Subseq Hosp Care Lvl [address] R93.89 Time Spent (min) 30
--- NOTE | 2020-01-29 12:53 | Electrocardiogram Report ---
Test Reason : Blood Pressure : / mmHG Vent. Rate : 076 BPM Atrial Rate : 076 BPM P-R Int : 138 ms QRS Dur : 078 ms QT Int : 380 ms P-R-T Axes : 043 054 064 degrees QTc Int : 427 ms Normal sinus rhythm ST elevation, consider early repolarization, pericarditis, or injury Nonspecific T wave abnormality Abnormal ECG When compared with ECG of 24-JAN-2020 04:43, No significant change was found Confirmed by Ajit Hargrove ([id number]) on 01/29/2020 12:52:35 PM Referred By: [facility] Confirmed By:Ajit Hargrove
[2020-01-29] MEDS ORDERED: LEVOFLOXACIN/D5W 750 MG/150 ML BAG IV SCH (14:30)
--- NOTE | 2020-01-29 16:09 | Hospitalist Progress Note ---
Date of Service January 29, 2020 Assessment & Plan (1) Pneumonia: CT chest on 01/22 showed 5.7 cm LAUREN consolidation with central cavitation/mediastinal and hilar lymphadenopathy/bilateral upper airway irregular opacities. - Testing for TB via AFB smears (3/3 negative) and Quantiferon - Covid-19 was negative on 01/26 - Pulmonology following - Appreciate recs - Stopped Zosyn & doxycycline on 01/28 in favor of levofloxacin for possible AIN from penicillin. Total of a 14 day course with CXR at the time he finishes antibiotics. (End date: 02/06/2020) and CT chest 2 weeks after that (~02/19/2020) to ensure resolution. - Continue theophylline, Singulair, Zyrtec, DuoNebs, Mucinex, and Breo (2) Acute kidney injury: Creatinine 1.72 upon admission, with baseline 1.08. - Resolved, then back up slightly on 01/26 & 01/27. Renal ultrasound normal. Mi ld increase in blood eosinophils. Possible AIN? Discussed with nephrology. - Stopped Zosyn in favor of levofloxacin -> Monitor Cr (3) Cavitary lesion of lung: See above (4) Asthma exacerbation: Initially on steroids for asthma exacerbation. Stopped per pulmonary request. - No wheezing on exam today. (5) Hyperglycemia: Glucose 167 upon admission. A1c was 6%. No history of diabetes mellitus. - Monitor A1c as outpatient. (6) DVT prophylaxis: SCDs - Holding heparin for mild hemoptysis Admission and Anticipated Discharge Date Admission Date: January 23, 2020 Subjective Feeling sick still and generally weak all over. Reports no fevers/chills, chest pain, shortness of breath, abdominal pain, nausea, or vomiting. Physical Exam Constitutional: WD/WN, vitals as above Eyes: EOM intact bilaterally; no conjunctival abnormality ENMT: external ear and nose normal, oropharynx normal Neck: trachea midline, no thyromegaly normal visual inspection Respiratory: normal respiratory effort, lungs clear to auscultation no respiratory distress Cardiovascular: RRR, no murmur, no edema Gastrointestinal (Abdomen): Inspection/Auscultation: abdomen normal to inspection; abdomen not distended Musculoskeletal: no cyanosis or clubbing, extremities motor strength 5/5 Skin: no rashes, warm and dry Neurologic: moves all extremities and awake Psychiatric: Orientation: alert, oriented to person and cooperative Results & Data Results & Data ([facility]) Vital Signs (Past 12 Hours) Vital Signs Temp Pulse Pulse Pulse Resp BP BP 01/29/20 15:11 36.5 C 76 19 126/81 01/29/20 15:03 80 20 01/29/20 11:40 36.9 C 86 18 102/59 L 01/29/20 11:14 85 01/29/20 10:47 86 01/29/20 07:52 36.8 C 88 18 96/60 L 01/29/20 07:00 87 16 Pulse Ox 01/29/20 15:11 96 01/29/20 15:03 95 01/29/20 11:40 99 01/29/20 11:14 93 01/29/20 10:47 01/29/20 07:52 96 01/29/20 07:00 96 PG Care Time/CCT Total # of Minutes Spent Total Time Spent with Patient: Total time spent is greater than 50% in coordination of care (as documented) at patient's floor/unit and/or counseling patient: Coding Level of Care Code 47907 Subseq Hosp Care Lvl 2 Diagnoses Pneumonia J18.9 Laterality: left Lung location: upper lobe of lung Pneumonia type: due to unspecified organism Acute kidney injury N17.9 Cavitary lesion of lung J98.4 Asthma exacerbation J45.51 Asthma persistence: persistent Asthma severity: severe Hyperglycemia R73.9 DVT prophylaxis Z29.9 (1) Pneumonia Laterality: left Lung location: upper lobe of lung Pneumonia type: due to unspecified organism Qualified Code(s): J18.9 - Pneumonia, unspecified organism (2) Asthma exacerbation Asthma persistence: persistent Asthma severity: severe Qualified Code(s): J45.51 - Severe persistent asthma with (acute) exacerbation
[2020-01-29] MEDS: NORMOSOL-R 1,000 ML IV SCH ×2 (16:12→20:34)
[2020-01-29] MEDS ORDERED: HYDROmorphone INJ 0.5 MG/0.5 ML SYR IV STA (22:29)
[2020-01-30] MEDS: ACETAMINOPHEN 325 MG TAB PO PRN ×2 (04:11→13:08)
[2020-01-30] MEDS: NORMOSOL-R 1,000 ML IV SCH (05:24)
[2020-01-30 06:46] LABS: Hematocrit (blood only) 37.9 % (42-52); Hemoglobin 12.9 g/dL (14.0-18.0); Mean Corpuscular Hemoglobin 30.2 pg (25-34); Mean Corpuscular Volume 88.8 fL (80-100); Mean Platelet Volume 8.4 fL (7.4-10.4); Platelet Count 359 K/uL (130-400); RDW Coefficient of Variation 13.7 % (11.5-14.5); RDW Standard Deviation 44.9 fL (36.4-46.3); Red Blood Count 4.27 M/uL (4.7-6.1); White Blood Count 10.26 K/uL (4.8-10.8)
[2020-01-30] MEDS: ALBUT/IPRATROP 3MG/0.5MG NEB 3 ML VIAL NEB SCH ×3 (06:57→15:51)
[2020-01-30 07:21] LABS: BUN Creatinine Ratio 7.2 (10-20); Est GFR (African American) 60.5; Est GFR (Non-African American) 52.2; Magnesium 2.7 mg/dl (1.8-2.4); Potassium 4.3 mmol/L (3.5-5.1)
[2020-01-30] MEDS: THEOPHYLLINE 300MG EXTENDED REL TAB PO SCH (08:27)
[2020-01-30] MEDS: CETIRIZINE HCL 10 MG TABLET PO SCH (08:27)
[2020-01-30] MEDS: MONTELUKAST SODIUM 10 MG TABLET PO SCH (08:27)
[2020-01-30] MEDS: FLUTICASONE/VILANTEROL 200/25MCG 14 PUFFS/INHALER INH SCH (08:27)
--- NOTE | 2020-01-30 14:08 | Discharge Summary ---
Date of Service January 30, 2020 Admission HPI Per Admitting Provider The patient is a 49-year-old male resident of [facility], who was treated for what was thought to be an asthma attack last week with oral prednisone. After feeling worse today, he went to the [facility] [place], where he was given 2 duo nebs and IV Solu-Medrol. Without sufficient improvement, he was brought to the emergency department, and reportedly en route received antibiotic nebulizer which did have some improvement. In the emergency department, the patient was found to have a temperature 100.8 F, a chest x-ray suggestive of a left upper lobe pneumonia, and then had a CT angiography PE protocol, which showed a 5.7 cm consolidation, and question of a central cavitary lesion, mediastinal and hilar lymphadenopathy, and bilateral upper airway groundglass opacities. He does have a pending COVID-19 test from the [facility] that was drawn today. Of note, there are no COVID cases present at the [facility] at this time. Principal Diagnosis Pneumonia Discharge Exam Constitutional WD/WN, vitals as above Eyes EOM intact bilaterally; no conjunctival abnormality ENMT external ear and nose normal, oropharynx normal Neck trachea midline, no thyromegaly normal visual inspection Respiratory normal respiratory effort, lungs clear to auscultation no respiratory distress Cardiovascular RRR, no murmur, no edema Gastrointestinal (Abdomen) Inspection/Auscultation: abdomen normal to inspection; abdomen not distended Musculoskeletal no cyanosis or clubbing, extremities motor strength 5/5 Skin no rashes, warm and dry Neurologic moves all extremities and awake Psychiatric Orientation: alert, oriented to person and cooperative Discharge Data Allergies Allergy/AdvReac Type Severity Reaction Status Date / Time No Known Allergies Allergy Verified 01/23/20 19:00 Consultations 01/23/20 20:25 ED Decision to Admit Stat 01/23/20 22:48 Consult Case Management - Discharge Planning Routine Consult Pulmonology Routine Ordered Studies 01/23/20 19:16 CT angio chest PE protocol Stat 01/28/20 12:02 US renal/blad retro comp Routine Hospital Course (1) Pneumonia: CT chest on 01/22 showed 5.7 cm LAUREN consolidation with central ca vitation/mediastinal and hilar lymphadenopathy/bilateral upper airway irregular opacities. - Testing for TB via AFB smears (3/3 negative) and Quantiferon - Covid-19 was negative on 01/26 - Pulmonology following - Appreciate recs - Stopped Zosyn & doxycycline on 01/28 in favor of levofloxacin for possible AIN from penicillin. Total of a 14 day course with CXR at the time he finishes antibiotics. (End date: 02/06/2020) and CT chest 2 weeks after that (~02/19/2020) to ensure resolution. - Continue theophylline, Singulair, Zyrtec, DuoNebs, Mucinex, and Breo - Lowered theophylline dose to TID because his level was slightly high QID. (2) Acute kidney injury: Creatinine 1.72 upon admission, with baseline 1.08. - Resolved, then back up slightly on 01/26 & 01/27. Renal ultrasound normal. Mild increase in blood eosinophils. Possible AIN? Discussed with nephrology. - Stopped Zosyn in favor of levofloxacin - Cr was 1.55 on discharge. If this is AIN, it will get better in a few days. Detention will recheck on Tuesday/Tuesday/Tuesday. If it is improving, great. If it is worse, they may send him back for nephrology re-evaluation. (3) Cavitary lesion of lung: See above (4) Asthma exacerbation: Initially on steroids for asthma exacerbation. Stopped per pulmonary request. - No wheezing on exam today. - Lowered theophylline to TID. (5) Hyperglycemia: Glucose 167 upon admission. A1c was 6%. No history of diabetes mellitus. - Monitor A1c as outpatient. (6) DVT prophylaxis: SCDs - Holding heparin for mild hemoptysis; resolved by discharge. Total Time Total Time Spent Total Time Spent (In Minutes): 35 Discharge Plan Discharge Items [facility] Reason For Visit: ACUTE RESP FAILURE WITH HYPOXIA, Discharge Diagnosis: Pneumonia Condition on Discharge: Good Activity: Resume your previous activity Non-emergency contact: Primary Care Provider and Exhaust And Muffler Repairer Call non-emergency contact if: your symptoms worsen and your temperature is above 101 Follow-up/Referrals: Won Jiang MD [Physician] - (Please see Dr. Jiang in pulmonology in 4 weeks with a plan for non-contrast CT chest the morning of the appointment.) Jigar CHURCH [Primary Care Provider] - Diet: Regular Addtl Attending Provider Instructions: (1) Pneumonia: CT chest on 01/22 showed 5.7 cm LAUREN consolidation with central cavitation/mediastinal and hilar lymphadenopathy/bilateral upper airway irregular opacities. - Testing for TB via AFB smears (3/3 negative) and Quantiferon was NEGATVE. - Covid-19 was negative on 01/26 - Pulmonology following - Appreciate recs - Stopped Zosyn & doxycycline on 01/28 in favor of levofloxacin for possible AIN from penicillin. Total of a 14 day course with CXR at the time he finishes antibiotics. (End date: 02/06/2020) and CT chest 2 weeks after that (~02/19/2020) to ensure resolution. - Continue theophylline, Singulair, Zyrtec, DuoNebs, Mucinex, and Breo - Lower theophylline to TID as he had a mildly high level on testing. (2) Acute kidney injury: Creatinine 1.72 upon admission, with baseline 1.08. - Resolved, then back up on 01/26 & 01/27. Renal ultrasound normal. Mild increase in blood eosinophils. Possible AIN? Discussed with nephrology. Stopped penicillin in favor of levofloxacin. - On 01/29, Cr. was stable at 1.55. - Retest Cr in a few days. If Cr improving, more likely to have been AIN. (3) Cavitary lesion of lung: See above (4) Asthma exacerbation: Initially on steroids for asthma exacerbation. Stopped per pulmonary request. - No wheezing on exam today. - Lowered theophylline to TID dosing because of mildly high level. (5) Hyperglycemia: Glucose 167 upon admission. A1c was 6%. No history of diabetes mellitus. - Monitor A1c as outpatient. - Likely due to initial steroids. (6) DVT prophylaxis: SCDs - Held heparin for mild hemoptysis; resolved by discharge. Pending Studies at Discharge: No Stand-Alone Forms: My [facility] [employer] Skilled Items Patient informed of condition?: Yes Discharge Level of Care: Other Communicable Disease: No Discharge Prognosis: Improving Lines: None Urinary Catheter: No Medications and DC Order Prescriptions: New levofloxacin 750 mg tablet 750 mg PO DAILY 7 Days Qty: 7 RF: 0 Continued cetirizine 10 mg capsule 10 mg PO DAILY RF: 0 ipratropium-albuterol 0.5 mg-3 mg(2.5 mg base)/3 mL solution for nebulization 3 ml INH BID RF: 0 montelukast 10 mg tablet 10 mg PO QAM RF: 0 levalbuterol tartrate [Xopenex HFA] 45 mcg/actuation HFA aerosol inhaler 2 puffs INH QID PRN (Reason: Shortness Of Breath) RF: 0 fluticasone propion-salmeterol [Wixela Inhub] 500-50 mcg/dose blister with device 1 puffs INH BID RF: 0 albuterol sulfate 2.5 mg /3 mL (0.083 %) Solution For Nebulization 2.5 mg INHALATION QID RF: 0 albuterol sulfate 2.5 mg /3 mL (0.083 %) Solution For Nebulization 2.5 mg INHALATION Q4H PRN (Reason: Shortness Of Breath Or Wheezing) RF: 0 acetaminophen 500 mg Tablet 500 mg PO TID RF: 0 Changed theophylline 300 mg capsule,extended release 24hr 300 mg PO TID Qty: 0 RF: 0 Discontinued prednisone 10 mg Tablet See Rx Instructions .ROUTE .COMPLEX RF: 0 Discharge Orders: Discharge Order (Routine); Ordered 01/30/20 Ordered By: Wilmar Carver/Other Patient Handouts: A1C Admission Data Admit Date/Time: 01/23/20 21:26 Attending Provider: Wilmar Carvajal Admit Provider: Bill Maya Primary Care Provider: Jigar CHURCH Other Providers: Vinicio Fallon ; Wilmar Carvajal Other Interventions: Discharge Summary Assessment (RN) Last Done: 01/30/20 11:59 Coding Level of Care Code D/C Day Management >30 mins Diagnoses Pneumonia J18.9 Laterality: left Lung location: upper lobe of lung Pneumonia type: due to unspecified organism Acute kidney injury N17.9 Cavitary lesion of lung J98.4 Asthma exacerbation J45.51 Asthma persistence: persistent Asthma severity: severe Hyperglycemia R73.9 DVT prophylaxis Z29.9
== END 2020-01-30 15:40 | DRG 193 ==
LOC: ED 17:30 → 2E 21:26 → SUATTDRO 21:26 → 2E 22:51